=== PATIENT | female | born 1940 | race Caucasian/White ===

== ENCOUNTER 2018-03-16 17:31 | Observation (INO) | payer OTHER ==
[~2018-03-16] VITALS: Ht 157.5 cm; Wt 53.4 kg
[~2018-03-16 17:31] MED LIST: ACIDTAB4 PO; ASPI81 PO; BIOT1TAB2 PO; CITRTAB16 PO; CITRTAB8 PO; FLUT1INH; FOLI1 PO; HYDR200T42 PO; LEVO50TA4 PO; METH2.5 PO; MIRA33502 PO; OMPR20CCR PO; SPIRCAP INH
[2018-03-16 17:34] VITALS: BP 193/89; PULSE 94; RESP 28; TEMP 97.8; O2SAT 93
[2018-03-16] MEDS ORDERED: ASPI81CH6 CHEW (17:57)
[2018-03-16] MEDS ORDERED: METH2.5T PO (17:57)
[2018-03-16] MEDS ORDERED: ATOR20TA15 PO (17:57)
[2018-03-16] MEDS ORDERED: TIOT1AER2 INH (17:57)
[2018-03-16] MEDS ORDERED: LEVO50TA4 PO (17:57)
[2018-03-16] MEDS ORDERED: FLUT1INH INH (17:57)
[2018-03-16] MEDS ORDERED: ZANT150T2 PO (17:57)
[2018-03-16] MEDS ORDERED: ESCI10TA PO (17:57)
[2018-03-16] MEDS ORDERED: FOLI800T PO (17:57)
[2018-03-16 17:58] VITALS: BP 159/86; PULSE 84; RESP 16; TEMP 97.8; O2SAT 96
[2018-03-16] MEDS ORDERED: KETOROLAC TROMETHAMINE 30 MG/ML (IVP) VIAL IV PUSH ONE (18:00)
[2018-03-16] MEDS ORDERED: SODIUM CHLOR 0.9% 1000 ML INJ 1,000 ML IV ONE (18:00)
[2018-03-16] MEDS ORDERED: CYCLOBENZAPRINE HCL 10 MG TAB PO ONE (18:00)
[2018-03-16] MEDS ORDERED: ONDANSETRON ODT 4 MG TAB PO ONE (18:15)
--- NOTE | 2018-03-16 18:15 | PD ---
HPI Chief Complaint: GI Complaint Time Seen by Provider: 17:48 Travel History International Travel<30 days: No Contact w/Intl Traveler<30days: No Traveled to known affect area: No History of Present Illness HPI Patient is a 77 year old female who comes in due to back pain, constipation, and lack of appetite. She says that a week ago she was lifting a heavy box while gardening and she developed back pain. She says that since then she has been unable to eat. She says she has no appetite. She says she tried to eat today and she vomited acid. She says that she has a lot of pain in her lower back. She says that Aleve helped when she took it last night. She also reports being unable to have a bowel movement. She says that she took some Milk of Magnesia and passed a lot of water, but did not feel like she made much stool. She went to see her doctor yesterday who ordered Xrays of her back, which she had done, but does not have the results back. She is worried because she has not gotten any results. She also says she has last about 15 pounds recently and was told she was dehydrated. She denies chest pain, cough, fever. She denies abdominal pain. Severity is mild to moderate. PFSH Past Medical History Arthritis: Yes (RHEUMATOID) Asthma: Yes Autoimmune Disease: No Blood Disorders: Yes (THALACEMIA) Anxiety: No Depression: Yes Heart Rhythm Problems: No Cancer: No Cardiac Catheterization: Yes (2 STENTS) Cardiovascular Problems: No High Cholesterol: Yes Chemotherapy: No Chest Pain: No Congestive Heart Failure: No COPD: Yes Cerebrovascular Accident: No Coronary Artery Disease: Yes Diabetes: No Diminished Hearing: No Endocrine: No Gastrointestinal Disorders: Yes GERD: Yes Glaucoma: No Genitourinary: No Headaches: No Hepatitis: No Hiatal Hernia: Yes Hypertension: No Immune Disorder: No Kidney Stones: No Musculoskeletal: No Neurologic: No Psychiatric: No Reproductive: No Respiratory: Yes (COPD) Immunizations Current: Yes Myocardial Infarction: No Radiation Therapy: No Renal Failure: No Seizures: No Sickle Cell Disease: No Sleep Apnea: No 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) Ulcer: No Influenza Vaccination: Yes ?: Not Past Surgical History Abdominal Surgery: No AICD: No Cardiac Surgery: Yes (HEART STENT PLACED) Ear Surgery: No Endocrine Surgery: No Eye Surgery: No Genitourinary Surgery: No Gynecologic Surgery: No Oral Surgery: No Pacemaker: No Thoracic Surgery: No Other Surgery: Yes Social History Alcohol Use: Yes (SOCIAL) Tobacco Use: No (QUIT 1991) Substance Use: No Allergies-Medications (Allergen,Severity, Reaction): Coded Allergies: No Known Allergies (Verified Adverse Reaction, Unknown, 03/16/18) Reported Meds & Prescriptions Reported Meds & Active Scripts Active Reported Atorvastatin (Atorvastatin Calcium) 20 Mg Tab 20 Mg PO HS Escitalopram (Escitalopram Oxalate) 10 Mg Tab 10 Mg PO DAILY Zantac (Ranitidine HCl) 150 Mg Tab 150 Mg PO DAILY Spiriva Respimat Inh (Tiotropium Inh) 1.25 Mcg/Act Aero 2 Puff INH DAILY 1.25 mcg = 1 inhalation Methotrexate 2.5 Mg Tab 2.5 Mg PO Q7D Levothyroxine (Levothyroxine Sodium) 50 Mcg Tab 50 Mcg PO DAILY Folic Acid 0.8 Mg Tab 800 Mcg PO DAILY Breo Ellipta Inh (Fluticasone/Vilanterol) 100-25 Mcg/Act Inh 1 Puff INH DAILY Use daily at the same time. Aspirin Low Dose (Aspirin) 81 Mg Chew 81 Mg CHEW DAILY Review of Systems Except as stated in HPI: all other systems reviewed are Neg General / Constitutional: No: Fever, Chills HENT: No: Headaches, Lightheadedness Cardiovascular: No: Chest Pain or Discomfort Respiratory: No: Shortness of Breath Gastrointestinal: Positive: Nausea, Constipation Genitourinary: No: Dysuria Musculoskeletal: Positive: Pain Skin: No Rash, No Change in Pigmentation Physical Exam Narrative GENERAL: Awake and alert, in no acute distress. SKIN: Focused skin assessment warm/dry. No wounds or signs of infection. HEAD: Atraumatic. Normocephalic. EYES: Pupils equal and round. No scleral icterus. No injection or drainage. ENT: No nasal bleeding or discharge. Mucous membranes pink and moist. NECK: Trachea midline. No JVD. CARDIOVASCULAR: Regular rate and rhythm. No murmur appreciated. RESPIRATORY: No accessory muscle use. Clear to auscultation. Breath sounds equal bilaterally. GASTROINTESTINAL: Abdomen soft, non-tender, nondistended. MUSCULOSKELETAL: No obvious deformities. No clubbing. No cyanosis. No edema. Tender to palpation of bilateral sacroiliac areas. No spinal tenderness. NEUROLOGICAL: Awake and alert. No obvious cranial nerve deficits. Motor grossly within normal limits. Normal speech. PSYCHIATRIC: Appropriate mood and affect; insight and judgment normal. Data Data Last Documented VS Vital Signs Date Time Temp Pulse Resp B/P (MAP) Pulse Ox O2 Delivery O2 Flow Rate FiO2 03/16/18 17:58 97.8 84 16 159/86 (110) 96 Room Air Orders Orders Iv Access Insert/Monitor (03/16/18 17:59) Complete Blood Count With Diff (03/16/18 17:59) Comprehensive Metabolic Panel (03/16/18 17:59) Urinalysis - C+S If Indicated (03/16/18 17:59) Chest, Single Ap (03/16/18 ) Ct Abd/Pel W Iv Contrast(Rout) (03/16/18 ) Ct Lumb Spine W/O Contrast (03/16/18 ) Sodium Chlor 0.9% 1000 Ml Inj (Ns 1000 M (03/16/18 18:00) Ketorolac Inj (Toradol Inj) (03/16/18 18:00) Cyclobenzaprine (Flexeril) (03/16/18 18:00) Ondansetron Odt (Zofran Odt) (03/16/18 18:15) MDM Medical Decision Making Medical Screen Exam Complete: Yes Emergency Medical Condition: Yes Medical Record Reviewed: Yes Differential Diagnosis dehydration vs UTI vs arthritis vs sciatica Narrative Course Patient is a 77 year old female who comes in with multiple complaints. Exam shows tenderness to palpation of the sacroiliac areas. IV established, labs sent. CT abd/pelvis and lumbar spine ordered. CXR ordered. Given IVF, zofran, Toradol, Flexeril. Signed out to oncoming provider to follow up testing and disposition the patient. Diagnosis Primary Impression: Back pain Qualified Codes: M54.5 - Low back pain Additional Impression: Dehydration Rand Regan MD March 16, 2018 18:15
--- NOTE | 2018-03-16 18:21 | RADRPT ---
EXAM DATE/TIME: 03/16/2018 18:07 [facility] COMPARISON: CHEST SINGLE AP, April 15, 2015, 17:53. INDICATIONS : Short of breath, back pain, nausea MEDICAL HISTORY : Chronic obstructive pulmonary disease. SURGICAL HISTORY : None. ENCOUNTER: Initial ACUITY: 4 - 6 days PAIN SCORE: 0/10 LOCATION: Bilateral chest FINDINGS: A single view of the chest demonstrates the lungs to be hyperaerated without evidence of mass, infilt rate or effusion. The cardiomediastinal contours are unremarkable. Osseous structures are intact. CONCLUSION: No acute disease. Toño Ro MD on March 16, 2018 at 18:19 Board Certified Radiologist. This report was verified electronically.
[2018-03-16 18:38] LABS: CHLORIDE 97 MEQ/L (98-107); SODIUM (NA) 133 MEQ/L (136-145)
[2018-03-16 18:40] LABS: AUTOMATED NEUTROPHIL # 4.9 TH/MM3 (1.8-7.7); BASOPHIL % 0.6 % (0.0-2.0); EOSINOPHIL # 0.5 TH/MM3 (0-0.4); HEMATOCRIT 35.4 % (35.0-46.0); HEMOGLOBIN 10.8 GM/DL (11.6-15.3); LYMPH % 14.1 % (9.0-44.0); MEAN CELL VOLUME 69.3 FL (80.0-100.0); MEAN CORPUSCULAR HEMOGLOBIN 21.2 PG (27.0-34.0); MEAN CORPUSCULAR HGB CONC 30.5 % (32.0-36.0); MEAN PLATELET VOLUME 7.8 FL (7.0-11.0); MONOCYTE # 0.9 TH/MM3 (0-0.9); NEUT % 66.3 % (16.0-70.0); PLATELET COUNT 270 TH/MM3 (150-450); RED CELL DISTRIBUTION WIDTH 14.7 % (11.6-17.2); WHITE BLOOD COUNT 7.4 TH/MM3 (4.0-11.0)
[2018-03-16 18:41] LABS: ALBUMIN 3.5 GM/DL (3.4-5.0); BICARBONATE 29.6 MEQ/L (21.0-32.0); BLOOD UREA NITROGEN 6 MG/DL (7-18); CALCIUM 9.1 MG/DL (8.5-10.1); GLUCOSE,RANDOM 112 MG/DL (74-106)
[2018-03-16 18:41] LABS: BLOOD, URINE TRACE (NEG); GLUCOSE,URINE NEG (NEG); KETONE, URINE TRACE mg/dL (NEG); NITRITE,URINE NEG (NEG); URINE COLOR YELLOW (YELLW/STRAW); URINE LEUKOCYTE ESTERASE NEG (NEG)
[2018-03-16 18:44] LABS: ALT (GPT) 15 U/L (10-53); AST (GOT) 12 U/L (15-37); CREATININE 0.54 MG/DL (0.50-1.00); GLOMERULAR FILTRATION RATE 109 ML/MIN (>89)
[2018-03-16 18:46] LABS: BILIRUBIN, URINE NEG (NEG)
[2018-03-16 18:46] LABS: TOTAL BILIRUBIN ADULT 0.6 MG/DL (0.2-1.0); TOTAL PROTEIN 6.7 GM/DL (6.4-8.2)
[2018-03-16 18:47] LABS: ALKALINE PHOSPHATASE 88 U/L (45-117)
[2018-03-16 18:57] LABS: MUCUS URINE MOD /lpf (OCC); RBC, URINE 0-3 /hpf (0-3); SQUAMOUS EPITHELIAL CELL URINE 0-5 /hpf (0-5); WBC, URINE 0-2 /hpf (0-5)
[2018-03-16] MEDS ORDERED: IOHEXOL 350 MG/ML 10 ML VIAL (for RAD DIAG) IVCONTRAST ONE (19:00)
--- NOTE | 2018-03-16 19:05 | PD ---
Physical Exam Date Seen by Provider: March 16, 2018 Time Seen by Provider: 19:03 Narrative Accepted in transfer of care from Dr. Regan @ 8:15 PM GENERAL: Well-developed well nourished thin female in no acute distress no respiratory distress resting supine SKIN: Warm and dry. HEAD: Normocephalic. EYES: No scleral icterus. No injection or drainage. NECK: Supple, trachea midline. No JVD or lymphadenopathy. CARDIOVASCULAR: Regular rate and rhythm without murmurs, gallops, or rubs. RESPIRATORY: Breath sounds equal bilaterally. No accessory muscle use. GASTROINTESTINAL: Abdomen soft, non-tender, nondistended. Rectal exam: Normal sphincter tone scant brown stool on exam glove Hemoccult negative MUSCULOSKELETAL: No cyanosis, or edema. Bilateral radial and dorsalis pedis pulses 2+ to palpation; DTRs 2+ bilateral upper extremities bilateral knees and ankles and equal without clonus. BACK: Nontender without obvious deformity except tenderness over the SI joints bilaterally right greater than left. Neg (B)SLR. No CVA tenderness. Data Data Last Documented VS Vital Signs Date Time Temp Pulse Resp B/P (MAP) Pulse Ox O2 Delivery O2 Flow Rate FiO2 03/16/18 19:24 85 16 165/75 (105) 95 Room Air 03/16/18 17:58 97.8 Orders Orders Iv Access Insert/Monitor (03/16/18 17:59) Complete Blood Count With Diff (03/16/18 17:59) Comprehensive Metabolic Panel (03/16/18 17:59) Urinalysis - C+S If Indicated (03/16/18 17:59) Chest, Single Ap (03/16/18 ) Ct Abd/Pel W Iv Contrast(Rout) (03/16/18 ) Ct Lumb Spine W/O Contrast (03/16/18 ) Sodium Chlor 0.9% 1000 Ml Inj (Ns 1000 M (03/16/18 18:00) Ketorolac Inj (Toradol Inj) (03/16/18 18:00) Cyclobenzaprine (Flexeril) (03/16/18 18:00) Ondansetron Odt (Zofran Odt) (03/16/18 18:15) Iohexol 350 Inj (Omnipaque 350 Inj) (03/16/18 19:00) Admit Order (Ed Use Only) (03/16/18 ) Roll Up Machine Operator / Telemetry [id number].[id number] (03/16/18 20:21) Activity Bed Rest (03/16/18 20:21) Notify Dr: Other (03/16/18 20:21) Dexamethasone Inj (Decadron Inj) (03/16/18 20:30) Morphine Inj (Morphine Inj) (03/16/18 20:30) Labs Laboratory Tests Test 03/16/18 18:20 03/16/18 18:30 White Blood Count 7.4 TH/MM3 Red Blood Count 5.10 MIL/MM3 Hemoglobin 10.8 GM/DL Hematocrit 35.4 % Mean Corpuscular Volume 69.3 FL Mean Corpuscular Hemoglobin 21.2 PG Mean Corpuscular Hemoglobin Concent 30.5 % Red Cell Distribution Width 14.7 % Platelet Count 270 TH/MM3 Mean Platelet Volume 7.8 FL Neutrophils (%) (Auto) 66.3 % Lymphocytes (%) (Auto) 14.1 % Monocytes (%) (Auto) 12.0 % Eosinophils (%) (Auto) 7.0 % Basophils (%) (Auto) 0.6 % Neutrophils # (Auto) 4.9 TH/MM3 Lymphocytes # (Auto) 1.0 TH/MM3 Monocytes # (Auto) 0.9 TH/MM3 Eosinophils # (Auto) 0.5 TH/MM3 Basophils # (Auto) 0.0 TH/MM3 CBC Comment AUTO DIFF Differential Comment AUTO DIFF CONFIRMED Ovalocytes 1+ Blood Urea Nitrogen 6 MG/DL Creatinine 0.54 MG/DL Random Glucose 112 MG/DL Total Protein 6.7 GM/DL Albumin 3.5 GM/DL Calcium Level 9.1 MG/DL Alkaline Phosphatase 88 U/L Aspartate Amino Transf (AST/SGOT) 12 U/L Alanine Aminotransferase (ALT/SGPT) 15 U/L Total Bilirubin 0.6 MG/DL Sodium Level 133 MEQ/L Potassium Level 3.6 MEQ/L Chloride Level 97 MEQ/L Carbon Dioxide Level 29.6 MEQ/L Anion Gap 6 MEQ/L Estimat Glomerular Filtration Rate 109 ML/MIN Urine Color YELLOW Urine Turbidity CLEAR Urine pH 6.0 Urine Specific [place] 1.025 Urine Protein NEG mg/dL Urine Glucose (UA) NEG mg/dL Urine Ketones TRACE mg/dL Urine Occult Blood TRACE Urine Nitrite NEG Urine Bilirubin NEG Urine Urobilinogen 1.0 MG/DL Urine Leukocyte Esterase NEG Urine RBC 0-3 /hpf Urine WBC 0-2 /hpf Urine Squamous Epithelial Cells 0-5 /hpf Urine Mucus MOD /lpf Microscopic Urinalysis Comment CULT NOT INDICATED MDM Medical Record Reviewed: Yes Supervised Visit with RUPESH: No Interpretation(s) UA: ketones Last Impressions Lumbar Spine CT 03/16/18 0000 Signed Impressions: Service Date/Time: Friday, March 16, 2018 18:57 - CONCLUSION: 1. Multilevel disc bulges including mild canal stenosis at L3-4 and L4-5 levels. 2. Kyphoplasty cement within L1 vertebral body with mild/moderate loss of height. 3. Mild loss of height along the superior and plates of T11 and T12, likely chronic. Toño Ro MD Chest X-Ray 03/16/18 0000 Signed Impressions: Service Date/Time: Friday, March 16, 2018 18:07 - CONCLUSION: No acute disease. Toño Ro MD Abdomen/Pelvis CT 03/16/18 0000 Signed Impressions: Service Date/Time: Friday, March 16, 2018 18:57 - CONCLUSION: 1. Diverticulosis without diverticulitis. 2. Cholelithiasis. 3. Tiny pericardial effusion. Toño Ro MD CBC & BMP Diagram 03/16/18 18:20 Total Protein 6.7, Albumin 3.5, Calcium Level 9.1, Alkaline Phosphatase 88, Aspartate Amino Transf (AST/SGOT) 12 L, Alanine Aminotransferase (ALT/SGPT) 15, Total Bilirubin 0.6 Vital Signs Date Time Temp Pulse Resp B/P (MAP) Pulse Ox O2 Delivery O2 Flow Rate FiO2 03/16/18 19:24 85 16 165/75 (105) 95 Room Air 03/16/18 17:58 97.8 84 16 159/86 (110) 96 Room Air 03/16/18 17:34 97.8 94 28 193/89 (123) 93 Differential Diagnosis Accepted in transfer of care from Dr. Regan; please refer to her dictation Narrative Course Accepted in transfer of care from Dr. Regan; follow up CT's and disposition; @ 19:[address] abdomen pelvis per reading radiologist remarkable for tiny pericardial effusion cholelithiasis single stone identified diverticulosis without diverticulitis and CT lumbar spine remarkable for multiple level disc disease and compression fracture status post kyphoplasty L1 bulging disc at multiple levels with mild canal stenosis at L4 3 and L4-5. No acute fracture identified. CT imaging results and lab results shared with patient and 3 visitors at bedside ; patient has had symptoms 1 week with poor oral intake for water intake and poor food intake with reported weight loss; patient reports she otherwise has poor appetite but more sore this week with anorexia; patient denies any abdominal pain; patient today decided to come to the emergency room because she could not get the results of her imaging studies from his office which were performed yesterday and became concerned. 3 woman with her very concerned and reports that she lives by herself and they have noticed that she has deteriorated rapidly this week and they have not been able to stay with her and provide her with beverage or food. Patient reports that her pain has increased since imaging studies were performed as she is being transferred from one stretcher to another she had increased pain. Patient was logrolled and has mild tenderness to palpation along the lower thoracic and lumbar spine no point tenderness no bony step-off patient does have reproducible tenderness to palpation of both SI joints rectal exam was performed by me patient has normal sphincter tone small amount of brown stool in rectal vault and on exam glove that is Hemoccult negative. Patient with increased pain after transfer from stretcher to stretcher and no relief of symptoms after IV Toradol. Patient has had oral Zofran. Patient given morphine sulfate 1 mg IV has received 1 L of normal saline and reports her pain is unresolved. Patient does have history of COPD. Call placed to [facility] medicine service --discussed with Dr Em --OBS Physician Communication Physician Communication discussed with Dr Em --obs Diagnosis Primary Impression: Back pain Qualified Codes: M54.5 - Low back pain Additional Impressions: Dehydration Intractable back pain Pericardial effusion Cholelithiasis Qualified Codes: K80.20 - Calculus of gallbladder without cholecystitis without obstruction Admitting Information Admitting Physician Requests: Caty Vera MD March 16, 2018 19:05
[2018-03-16 19:16] LABS: OVALOCYTES 1+ (NORMAL)
--- NOTE | 2018-03-16 19:18 | RADRPT ---
EXAM DATE/TIME: 03/16/2018 18:57 [facility] COMPARISON: No previous studies available for comparison. INDICATIONS : Nausea, vomiting and lower back pain for one week. IV CONTRAST: 70 cc Omnipaque 350 (iohexol) IV ORAL CONTRAST: No oral contrast ingested. RADIATION DOSE: 5.26 CTDIvol (mGy) ; Combined studies MEDICAL HISTORY : Chronic obstructive pulmonary disease. Rheumatoid arthritis. Hernia, hiatal. SURGICAL HISTORY : Kyphoplasty. stent placement ENCOUNTER: Initial ACUITY: 1 week PAIN SCALE: 7/10 LOCATION: Bilateral lower back TECHNIQUE: Volumetric scanning of the abdomen and pelvis was performed. Using automated exposure control and ad justment of the mA and/or kV according to patient size, radiation dose was kept as low as reasonably achievable to obtain optimal diagnostic quality images. DICOM format image data is available electro nically for review and comparison. FINDINGS: LOWER LUNGS: The visualized lower lungs are clear. Tiny pericardial effusion. LIVER: Homogeneous density without lesion. There is no dilation of the biliary tree. Small calcified galls tone. SPLEEN: Normal size without lesion. PANCREAS: Within normal limits. KIDNEYS: Normal in size and shape. There is no mass, stone or hydronephrosis. ADRENAL GLANDS: Within normal limits. VASCULAR: There is no aortic aneurysm. Atherosclerotic changes of the abdominal aorta. BOWEL/MESENTERY: Diverticulosis the colon. There is no free intraperitoneal air or fluid. ABDOMINAL WALL: Within normal limits. RETROPERITONEUM: There is no lymphadenopathy. BLADDER: No wall thickening or mass. REPRODUCTIVE: Within normal limits. INGUINAL: There is no lymphadenopathy or hernia. MUSCULOSKELETAL: Degenerative changes lumbar spine. Kyphoplasty cement within L1. CONCLUSION: 1. Diverticulosis without diverticulitis. 2. Cholelithiasis. 3. Tiny pericardial effusion. Toño Ro MD on March 16, 2018 at 19:13 Board Certified Radiologist. This report was verified electronically.
[2018-03-16 19:24] VITALS: BP 165/75; PULSE 85; RESP 16; O2SAT 95
--- NOTE | 2018-03-16 19:30 | RADRPT ---
EXAM DATE/TIME: 03/16/2018 18:57 [facility] COMPARISON: No previous studies available for comparison. INDICATIONS : Nausea, vomiting and lower back pain for one week. RADIATION DOSE: ; Reconstructed from previous dataset, no dose MEDICAL HISTORY : Chronic obstructive pulmonary disease. Rheumatoid arthritis. Hernia, hiatal. SURGICAL HISTORY : Kyphoplasty. ENCOUNTER: Initial ACUITY: 1 week PAIN SCALE: 7/10 LOCATION: Bilateral lower back TECHNIQUE: Volumetric scanning of the lumbar spine was performed. Multiplanar reconstructions in the sagittal, coronal and oblique axial planes were performed. Using automated exposure control and adjustment of the mA and/or kV according to patient size, radiation dose was kept as low as reasonably achievable t o obtain optimal diagnostic quality images. DICOM format image data is available electronically for review and comparison. FINDINGS: VERTEBRAE: Kyphoplasty cement seen within L1 with mild to moderate loss of height. Mild loss of height of T11 an d T12 along the superior and plates. Remaining lumbar vertebral bodies are normal.. ALIGNMENT: No evidence of subluxation. T12-L1: The thecal sac has a normal diameter. No evidence of disc bulge or protrusion. The neural foramina are patent bilaterally. L1-L2: The thecal sac has a normal diameter. No evidence of disc bulge or protrusion. The neural foramina are patent bilaterally. L2-L3: Mild broad-based bulge abuts ventral thecal sac without canal stenosis. The neural foramina are champagne nt bilaterally. L3-L4: Mild broad-based bulge abuts ventral thecal sac with mild canal stenosis. Bilateral mild neural cale inal narrowing. L4-L5: Mild broad-based bulge abuts ventral thecal sac with mild canal stenosis. Bilateral mild neural cale inal narrowing. L5-S1: The thecal sac has a normal diameter. No evidence of disc bulge or protrusion. The neural foramina are patent bilaterally. CONCLUSION: 1. Multilevel disc bulges including mild canal stenosis at L3-4 and L4-5 levels. 2. Kyphoplasty cement within L1 vertebral body with mild/moderate loss of height. 3. Mild loss of height along the superior and plates of T11 and T12, likely chronic. Toño Ro MD on March 16, 2018 at 19:24 Board Certified Radiologist. This report was verified electronically.
[2018-03-16] MEDS ORDERED: MORPHINE SULFATE 4 MG/ML INJ IV PUSH ONE (20:30)
[2018-03-16] MEDS ORDERED: DEXAMETHASONE SOD PHOS 4 MG/ML VIAL IV PUSH ONE (20:30)
[2018-03-16] MEDS ORDERED: ACETAMINOPHEN 325 MG TAB PO PRN (20:45)
[2018-03-16] MEDS ORDERED: METOCLOPRAMIDE HCL 10 MG/2 ML VIAL IV PUSH PRN (20:45)
[2018-03-16] MEDS ORDERED: SENNOSIDES 8.6 MG TAB PO PRN (20:45)
[2018-03-16] MEDS ORDERED: ACETAMINOPHEN/HYDROcodone 325 MG/5 MG TAB PO PRN (20:45)
[2018-03-16] MEDS ORDERED: BISACODYL 10 MG SUPP RECTAL PRN (20:45)
[2018-03-16] MEDS ORDERED: LACTULOSE SYRUP 20 GM/30 ML CUP PO PRN (20:45)
[2018-03-16] MEDS ORDERED: MAGNESIUM HYDROXIDE SUSP 30 ML CUP PO PRN (20:45)
[2018-03-16] MEDS ORDERED: SODIUM CHLORIDE 0.9% FLUSH 10 ML FLUSH IV FLUSH PRN (20:45)
[2018-03-16 20:53] VITALS: BP 165/74; TEMP 98.7
[2018-03-16] MEDS: SODIUM CHLORIDE 0.9% FLUSH 10 ML FLUSH IV FLUSH SCH (20:57)
[2018-03-16] MEDS ORDERED: ATORVASTATIN 20 MG TAB PO SCH (21:00)
[2018-03-16] MEDS ORDERED: MORPHINE SULFATE 4 MG/ML INJ IV PUSH PRN (21:00)
[2018-03-16 21:15] VITALS: BP 164/84; PULSE 87; RESP 20; TEMP 95.9; O2SAT 96
[2018-03-16] MEDS: CYCLOBENZAPRINE HCL 10 MG TAB PO PRN (21:25)
[2018-03-16] MEDS: DOCUSATE SODIUM 50 MG/SENNA 8.6 MG TAB PO SCH (21:25)
[2018-03-17] VITALS (7 sets, daily range): BP systolic 112–154; BP diastolic 54–80; PULSE 72–97; RESP 18–20; TEMP 96–97.6; O2SAT 93–97
[2018-03-17] MEDS ORDERED: LEVOTHYROXINE SODIUM 50 MCG TAB PO SCH (06:00)
[2018-03-17 07:17] LABS: HEMATOCRIT 35.7 % (35.0-46.0); HEMOGLOBIN 11.1 GM/DL (11.6-15.3); MEAN CELL VOLUME 68.8 FL (80.0-100.0); MEAN CORPUSCULAR HEMOGLOBIN 21.5 PG (27.0-34.0); MEAN CORPUSCULAR HGB CONC 31.2 % (32.0-36.0); MEAN PLATELET VOLUME 7.5 FL (7.0-11.0); PLATELET COUNT 284 TH/MM3 (150-450); RED BLOOD COUNT 5.18 MIL/MM3 (4.00-5.30); RED CELL DISTRIBUTION WIDTH 14.8 % (11.6-17.2); WHITE BLOOD COUNT 4.1 TH/MM3 (4.0-11.0)
[2018-03-17 07:42] LABS: ALBUMIN 3.2 GM/DL (3.4-5.0); ALKALINE PHOSPHATASE 81 U/L (45-117); ALT (GPT) 14 U/L (10-53); AST (GOT) 12 U/L (15-37); BICARBONATE 31.5 MEQ/L (21.0-32.0); BLOOD UREA NITROGEN 7 MG/DL (7-18); CALCIUM 8.9 MG/DL (8.5-10.1); CHLORIDE 102 MEQ/L (98-107); CREATININE 0.52 MG/DL (0.50-1.00); GLOMERULAR FILTRATION RATE 114 ML/MIN (>89); GLUCOSE,RANDOM 138 MG/DL (74-106); SODIUM (NA) 137 MEQ/L (136-145); TOTAL BILIRUBIN ADULT 0.5 MG/DL (0.2-1.0); TOTAL PROTEIN 6.3 GM/DL (6.4-8.2)
[2018-03-17 07:52] LABS: LYMPHOCYTES 16 % (9-44); MONOCYTES 5 % (0-8); NEUTROPHIL # MANUAL DIFF 3.2 TH/MM3 (1.8-7.7); POLYS (SEG NEUTROPHILS) 79 % (16-70)
--- NOTE | 2018-03-17 08:59 | HHI.HP ---
[facility] Chava Doshi MD Admission Diagnosis Intractable lumbar pain/lumbar DDD; small pericardial effusion Diagnoses: (1) Intractable back pain Chief Complaint: Back pain Travel History International Travel<30 Days: No Contact w/Intl Traveler <30 Da: No Traveled to Known Affected Are: No History of Present Illness This is a pleasant 77-year-old female patient with a known medical history of rheumatoid arthritis, CAD with cardiac stent placement, hyperlipidemia, COPD who presented to the ED with complaints of back pain, constipation and diminished appetite. Patient states that last week she was lifting a heavy box in her garden and immediately developed lower lumbar back pain. Patient states that the back pain continued over the course of the week and progressively got worse leading to her presentation to the ED. Patient does admit to poor appetite and constipation. She does admit to taking milk of mag which initially helped her constipation and now has not had a bowel movement for over 5 days now. She is passing gas. Patient's pain in her back as sharp in nature , worsens with activity and movement and is associated with nausea and intermittent vomiting. Patient denies any paresthesia, or incontinence of urine or stool. Supposedly patient went to her primary care doctor this week and x-rays were ordered but patient is unaware of the results. It should be noted that patient feels dehydrated upon presentation and has reported a 15 pound weight loss over the course of the last month. Upon presentation patient' s blood pressure was severely elevated in the 190s systolic. This is not resolved. Pain is more controlled at this time. Lumbar CT was done in ED and reviewed showing disc bulging and mild canal stenosis. Patient has had a previous kyphoplasty. No acute fracture or compression. Review of Systems Constitutional: COMPLAINS OF: Fatigue, Change in appetite, DENIES: Fever, Chills Eyes: DENIES: Diplopia Respiratory: COMPLAINS OF: Shortness of breath, DENIES: Cough, Sputum production Cardiovascular: DENIES: Chest pain, Palpitations Gastrointestinal: COMPLAINS OF: Constipation, Nausea, DENIES: Abdominal pain, Black stools, Bloody stools, Diarrhea, Vomiting Musculoskeletal: COMPLAINS OF: Back pain Hematologic/lymphatic: DENIES: Bruising Neurologic: DENIES: Abnormal gait Psychiatric: COMPLAINS OF: Anxiety Except as stated in HPI: all other systems reviewed are Neg Past Family Social History Past Medical History History of thalassemia Rheumatoid arthritis Asthma History of COPD Depression History of CAD with cardiac stent placement Hyperlipidemia GERD Thyroid nodules Past Surgical History History of kyphoplasty in 2016 Cardiac stent placement x 2 Reported Medications Active Reported Atorvastatin (Atorvastatin Calcium) 20 Mg Tab 20 Mg PO HS Escitalopram (Escitalopram Oxalate) 10 Mg Tab 10 Mg PO DAILY Zantac (Ranitidine HCl) 150 Mg Tab 150 Mg PO DAILY Spiriva Respimat Inh (Tiotropium Inh) 1.25 Mcg/Act Aero 2 Puff INH DAILY 1.25 mcg = 1 inhalation Methotrexate 2.5 Mg Tab 2.5 Mg PO Q7D Levothyroxine (Levothyroxine Sodium) 50 Mcg Tab 50 Mcg PO DAILY Folic Acid 0.8 Mg Tab 800 Mcg PO DAILY Breo Ellipta Inh (Fluticasone/Vilanterol) 100-25 Mcg/Act Inh 1 Puff INH DAILY Use daily at the same time. Aspirin Low Dose (Aspirin) 81 Mg Chew 81 Mg CHEW DAILY Allergies: Coded Allergies: No Known Allergies (Verified Allergy, Unknown, 03/16/18) Active Ordered Medications Current Medications Medications (Trade) Dose Ordered Sig/Honey Route Start Time Stop Time Status Last Admin (Deltasone) 50 mg DAILY PO 03/17/18 09:00 03/17/18 09:03 (Flexeril) 5 mg Q8H PRN PO 03/16/18 20:45 03/17/18 09:04 (NS Flush) 2 ml UNSCH PRN IV FLUSH 03/16/18 20:45 (NS Flush) 2 ml BID IV FLUSH 03/16/18 21:00 03/17/18 09:05 (Reglan Inj) 5 mg Q6H PRN IV PUSH 03/16/18 20:45 (Tylenol) 650 mg Q6H PRN PO 03/16/18 20:45 ([place] 5-325 Mg) 1 tab Q4H PRN PO 03/16/18 20:45 (Morphine Inj) 2 mg Q3H PRN IV PUSH 03/16/18 21:00 (Lara-Colace) 1 tab BID PO 03/16/18 21:00 03/17/18 09:03 (Milk Of Magnesia Liq) 30 ml Q12H PRN PO 03/16/18 20:45 (Senokot) 17.2 mg Q12H PRN PO 03/16/18 20:45 03/17/18 09:22 (Dulcolax Supp) 10 mg DAILY PRN RECTAL 03/16/18 20:45 (Lactulose Liq) 30 ml DAILY PRN PO 03/16/18 20:45 (Aspirin Chew) 81 mg DAILY CHEW 03/17/18 09:00 03/17/18 09:04 (Lipitor) 20 mg HS PO 03/16/18 21:00 03/16/18 21:25 (Lexapro) 10 mg DAILY PO 03/17/18 09:00 03/17/18 09:03 (Breo Ellipta 100-25 Inh) 1 puff DAILY INH 03/17/18 09:00 03/17/18 09:04 (Synthroid) 50 mcg DAILY@0600 PO 03/17/18 06:00 03/17/18 06:15 (Pepcid) 20 mg BID PO 03/17/18 09:00 03/17/18 09:03 (Spiriva Inh) 18 mcg DAILY INH 03/17/18 09:00 03/17/18 09:04 Family History Patient family history reviewed, noncontributory. Social History Patient denies current tobacco abuse, states she quit in 1991. Does admit to social alcohol use. Denies any illicit drug use. Physical Exam Vital Signs Vital Signs Date Time Temp Pulse Resp B/P (MAP) Pulse Ox O2 Delivery O2 Flow Rate FiO2 03/17/18 07:01 79 03/17/18 04:09 97.3 72 20 130/70 (90) 95 03/17/18 00:22 96.0 80 20 154/80 (104) 97 03/16/18 21:15 95.9 87 20 164/84 (110) 96 03/16/18 20:53 98.7 84 16 165/74 (104) 95 Nasal Cannula 2.00 03/16/18 19:24 85 16 165/75 (105) 95 Room Air 03/16/18 17:58 97.8 84 16 159/86 (110) 96 Room Air 03/16/18 17:34 97.8 94 28 193/89 (123) 93 Physical Exam GENERAL: Well-developed, elderly female patient in NAD. SKIN: Warm and dry. No rash. HEAD: Normocephalic. Atraumatic. EYES: Pupils equal and round. No scleral icterus. No injection or drainage. ENT: No nasal bleeding or discharge. Mucous membranes pink and moist. NECK: Supple. Trachea midline. CARDIOVASCULAR: Regular rate and rhythm. S1, S2 noted. No murmur appreciated. RESPIRATORY: Diminished breath sounds throughout posterior lobes. Breath sounds equal bilaterally. GASTROINTESTINAL: Abdomen soft, non-tender, nondistended. Normoactive bowel sounds x4. MUSCULOSKELETAL: No obvious deformities. Extremities without clubbing, cyanosis , or edema. Back painful to palpation in the lumbar spine. NEUROLOGICAL: Awake and alert. No obvious cranial nerve deficits. Motor grossly within normal limits. 5/5 muscle strength in bilateral upper and lower extremities. Normal speech. PSYCHIATRIC: Appropriate mood and affect; insight and judgment normal. Oups. Normal speech. Laboratory Laboratory Tests Test 03/16/18 18:20 03/16/18 18:30 03/17/18 06:46 White Blood Count 7.4 4.1 Red Blood Count 5.10 5.18 Hemoglobin 10.8 11.1 Hematocrit 35.4 35.7 Mean Corpuscular Volume 69.3 68.8 Mean Corpuscular Hemoglobin 21.2 21.5 Mean Corpuscular Hemoglobin Concent 30.5 31.2 Red Cell Distribution Width 14.7 14.8 Platelet Count 270 284 Mean Platelet Volume 7.8 7.5 Neutrophils (%) (Auto) 66.3 Lymphocytes (%) (Auto) 14.1 Monocytes (%) (Auto) 12.0 Eosinophils (%) (Auto) 7.0 Basophils (%) (Auto) 0.6 Neutrophils # (Auto) 4.9 Lymphocytes # (Auto) 1.0 Monocytes # (Auto) 0.9 Eosinophils # (Auto) 0.5 Basophils # (Auto) 0.0 CBC Comment AUTO DIFF AUTO DIFF Differential Comment AUTO DIFF CONFIRMED FINAL DIFF MANUAL Ovalocytes 1+ Blood Urea Nitrogen 6 7 Creatinine 0.54 0.52 Random Glucose 112 138 Total Protein 6.7 6.3 Albumin 3.5 3.2 Calcium Level 9.1 8.9 Alkaline Phosphatase 88 81 Aspartate Amino Transf (AST/SGOT) 12 12 Alanine Aminotransferase (ALT/SGPT) 15 14 Total Bilirubin 0.6 0.5 Sodium Level 133 137 Potassium Level 3.6 4.8 Chloride Level 97 102 Carbon Dioxide Level 29.6 31.5 Anion Gap 6 4 Estimat Glomerular Filtration Rate 109 114 Urine Color YELLOW Urine Turbidity CLEAR Urine pH 6.0 Urine Specific [place] 1.025 Urine Protein NEG Urine Glucose (UA) NEG Urine Ketones TRACE Urine Occult Blood TRACE Urine Nitrite NEG Urine Bilirubin NEG Urine Urobilinogen 1.0 Urine Leukocyte Esterase NEG Urine RBC 0-3 Urine WBC 0-2 Urine Squamous Epithelial Cells 0-5 Urine Mucus MOD Microscopic Urinalysis Comment CULT NOT INDICATED Differential Total Cells Counted 100 Neutrophils % (Manual) 79 Lymphocytes % 16 Monocytes % 5 Neutrophils # (Manual) 3.2 Platelet Estimate NORMAL Platelet Morphology Comment NORMAL Result Diagram: 03/17/18 0646 03/17/18 0646 Imaging Last Impressions Lumbar Spine CT 03/16/18 0000 Signed Impressions: Service Date/Time: Friday, March 16, 2018 18:57 - CONCLUSION: 1. Multilevel disc bulges including mild canal stenosis at L3-4 and L4-5 levels. 2. Kyphoplasty cement within L1 vertebral body with mild/moderate loss of height. 3. Mild loss of height along the superior and plates of T11 and T12, likely chronic. Toño Ro MD Chest X-Ray 03/16/18 0000 Signed Impressions: Service Date/Time: Friday, March 16, 2018 18:07 - CONCLUSION: No acute disease. Toño Ro MD Abdomen/Pelvis CT 03/16/18 0000 Signed Impressions: Service Date/Time: Friday, March 16, 2018 18:57 - CONCLUSION: 1. Diverticulosis without diverticulitis. 2. Cholelithiasis. 3. Tiny pericardial effusion. Toño Ro MD Septic Shock Reassessment Septic shock perfusion: reassessment completed Caprini VTE Risk Assessment Caprini VTE Risk Assessment: Mod/High Risk (score >= 2) Caprini Risk Assessment Model Point Value = 1 Point Value = 2 Point Value = 3 Point Value = 5 Age 41-60 Minor surgery BMI > 25 kg/m2 Swollen legs Varicose veins or History of unexplained or recurrent spontaneous Oral contraceptives or hormone replacement Sepsis (< 1 month) Serious lung disease, including pneumonia (< 1 month) Abnormal pulmonary function Acute myocardial infarction Congestive heart failure (< 1 month) History of inflammatory bowel disease Medical patient at bed rest Age 61-74 Arthroscopic surgery Major open surgery (> 45 min) Laparoscopic surgery (> 45 min) Malignancy Confined to bed (> 72 hours) Immobilizing plaster cast Central venous access Age >= 75 History of VTE Family history of VTE Factor V Leiden Prothrombin [id number] Lupus anticoagulant Anticardiolipin antibodies Elevated serum homocysteine Heparin-induced thrombocytopenia Other congenital or acquired thrombophilia Stroke (< 1 month) Elective arthroplasty Hip, pelvis, or leg fracture Acute spinal cord injury (< 1 month) Prophylaxis Regimen Total Risk Factor Score Risk Level Prophylaxis Regimen 0-1 Low Early ambulation 2 Moderate Order ONE of the following: *Sequential Compression Device (SCD) *Heparin 5000 units SQ BID 3-4 Higher Order ONE of the following medications: *Heparin 5000 units SQ TID *Enoxaparin/Lovenox 40 mg SQ daily (WT < 150 kg, CrCl > 30 mL/min) *Enoxaparin/Lovenox 30 mg SQ daily (WT < 150 kg, CrCl > 10-29 mL/min) *Enoxaparin/Lovenox 30 mg SQ BID (WT < 150 kg, CrCl > 30 mL/min) AND/OR *Sequential Compression Device (SCD) 5 or more Highest Order ONE of the following medications: *Heparin 5000 units SQ TID (Preferred with Epidurals) *Enoxaparin/Lovenox 40 mg SQ daily (WT < 150 kg, CrCl > 30 mL/min) *Enoxaparin/Lovenox 30 mg SQ daily (WT < 150 kg, CrCl > 10-29 mL/min) *Enoxaparin/Lovenox 30 mg SQ BID (WT < 150 kg, CrCl > 30 mL/min) AND *Sequential Compression Device (SCD) Assessment and Plan Problem List: (1) Intractable back pain ICD Code: M54.9 - Dorsalgia, unspecified Status: Acute Plan: Lumbar spine CT done in ED, reviewed showing multilevel disc bulges including mild canal stenosis at L3/L4 and L4/L5. Previous kyphoplasty seen. Chronic changes in the height of the superior endplates of T11 and T12. Pain control with p.o. Flexeril as needed for muscle spasm as well as [place] for pain scale and morphine IV per pain scale. Awaiting PT eval at this time. Patient was given Decadron IV any D. Will continue with prednisone 50 mg daily. Supportive care. (2) Constipation ICD Code: K59.00 - Constipation, unspecified Plan: No reports of a bowel movement in 5 days. Patient started on bowel regimen. Senokot given today. Monitor response. Abdominal/pelvis CT reviewed showing diverticulosis without diverticulitis. Cholelithiasis and tiny pericardial effusion. Patient has been doing well on RA with o2 sats 97%. Asymptomatic. Will have patient follow up with PCP. (3) Thyroid disease ICD Code: E07.9 - Disorder of thyroid, unspecified Plan: Continue home thyroid medication. (4) COPD (chronic obstructive pulmonary disease) ICD Code: J44.9 - Chronic obstructive pulmonary disease, unspecified Plan: Chest x ray reviewed showing no acute disease. COPD stable. On 2 LNC weaned to RA. Stable O2 sats. Continue home inhalers. Assessment and Plan Patient reassessed this afternoon, doing much improved. Pain is well controlled on Flexiril. Has not needed any narcotics. PT worked with patient, no HHC recommended although walker would be helpful. Patient has been tolerating PO intake, passing flatus. No BM as of yet although patient has not had much intake. Will write prescription for constipation and have patient follow up with PCP for lumbar pain and constipation. Patient is stable at this time and agreeable to the plan. Rand Mulligan March 17, 2018 08:59
[2018-03-17] MEDS ORDERED: FAMOTIDINE 20 MG TAB PO SCH (09:00)
[2018-03-17] MEDS ORDERED: predniSONE 50 MG TAB PO SCH (09:00)
[2018-03-17] MEDS ORDERED: TIOTROPIUM BROMIDE 18 MCG INH INH SCH (09:00)
[2018-03-17] MEDS ORDERED: ASPIRIN 81 MG CHEW TAB CHEW SCH (09:00)
[2018-03-17] MEDS ORDERED: FLUTICASONE 100 MCG/VILANTEROL 25 MCG INHALER INH SCH (09:00)
[2018-03-17] MEDS ORDERED: ESCITALOPRAM OXALATE 10 MG TAB PO SCH (09:00)
[2018-03-17] MEDS: DOCUSATE SODIUM 50 MG/SENNA 8.6 MG TAB PO SCH (09:03)
[2018-03-17] MEDS: CYCLOBENZAPRINE HCL 10 MG TAB PO PRN (09:04)
[2018-03-17] MEDS: SODIUM CHLORIDE 0.9% FLUSH 10 ML FLUSH IV FLUSH SCH (09:05)
[2018-03-17] MEDS ORDERED: GETGO ROLLING W1 MI1 (15:11)
--- NOTE | 2018-03-17 15:12 | HHI.DCPOC ---
Discharge Care Plan Diagnosis: (1) Intractable back pain (2) COPD (chronic obstructive pulmonary disease) (3) Constipation Goals to Promote Your Health * To prevent worsening of your condition and complications * To maintain your health at the optimal level Directions to Meet Your Goals Take your medications as prescribed Follow your dietary instruction Follow activity as directed Keep your appointments as scheduled Take your immunizations and boosters as scheduled If your symptoms worsen call your PCP, if no PCP go to Urgent Care Center or Emergency Room Smoking is Dangerous to Your Health. Avoid second hand smoke Call the 24-hour hour crisis hotline for domestic abuse at Rand Mulligan March 17, 2018 15:12
[2018-03-17] MEDS ORDERED: CYCL10TA PO (15:15)
[2018-03-17] MEDS ORDERED: PRED50 PO (15:15)
[2018-03-17] MEDS ORDERED: SENN187 PO (15:16)
== END 2018-03-17 16:32 | disposition home or self-care (01) ==
LOC: PHED 17:31 → PHEDA 20:23 → PH3A 20:51
PROVIDERS: ADMIT Hospitalist; ATTEND Hospitalist
DX: M54.5 Low back pain (principal); K59.00 Constipation, unspecified; I31.3 Pericardial effusion (noninflammatory); E86.0 Dehydration; E07.9 Disorder of thyroid, unspecified; J44.9 Chronic obstructive pulmonary disease, unspecified; K80.20 Calculus of gallbladder without cholecystitis without obstruction; K57.90 Diverticulosis of intestine, part unspecified, without perforation or abscess without bleeding; M48.061 Spinal stenosis, lumbar region without neurogenic claudication; I25.10 Atherosclerotic heart disease of native coronary artery without angina pectoris; E78.5 Hyperlipidemia, unspecified; K21.9 Gastro-esophageal reflux disease without esophagitis; M51.36 Other intervertebral disc degeneration, lumbar region; M06.9 Rheumatoid arthritis, unspecified; F32.9 Major depressive disorder, single episode, unspecified; Z87.891 Personal history of nicotine dependence; Z95.5 Presence of coronary angioplasty implant and graft; Z79.899 Other long term (current) drug therapy
CPT/HCPCS: 71045; 72131; 74177; 80053; 81001; 85007; 85025; 85027; 94150; 96361; 96374; 96375; 96376; 97162; 99285; G0378; G8987; G8988; J1100; J1885; J2270; J7030; J7512; Q9967

== ENCOUNTER 2018-05-09 07:20 | Inpatient (IN) ==
[2018-05-09] MEDS ORDERED: MethylPREDNISolone Sod Succinate Inj 125 MG/2 ML Vial IV.PUSH ONE (07:29)
--- NOTE | 2018-05-09 07:44 | ED ---
HPI General Chief Complaint: Fall Stated Complaint: Fall/Evac Time Seen by Provider: 05/09/18 07:28 Source: patient and EMS Mode of arrival: EMS Limitations: no limitations History of Present Illness HPI Narrative: 77-year-old female states that she was feeling dizzy and short of breath this morning. When she was walking she hit her right hip on a dresser and fell down and hit her head. She did not black out. She denies any other concurrent complaints. complaint: fall Onset (ago): minute(s) Fall from: standing Fall witnessed: no Place fall occurred: home Loss of consciousness: none Prolonged down time: no Symptoms prior to fall: dizziness Location of injury - extremities: Right: thigh Severity: mild Quality: sharp Related Data Home Medications Medication Instructions Recorded Confirmed Spiriva with HandiHaler 05/07/18 albuterol sulfate [Ventolin HFA] 2 puff INHALATION Q4-6H PRN 05/07/18 05/09/18 atorvastatin 10 mg PO 05/07/18 baclofen 20 mg PO QID 05/07/18 05/09/18 fluticasone-vilanterol [Breo 1 inh INHALATION DAILY 05/07/18 05/09/18 Ellipta] levothyroxine 50 mcg PO DAILY 05/07/18 05/09/18 meloxicam 15 mg PO DAILY 05/07/18 05/09/18 methotrexate 10 mg/m2 PO QWEEK 05/07/18 05/09/18 Allergies Allergy/AdvReac Type Severity Reaction Status Date / Time No Known Allergies Allergy Verified 05/09/18 08:05 Review of Systems Except as stated in HPI: all other systems reviewed are negative [facility] Medical History Medical History Back arthralgia (Acute) COPD (chronic obstructive pulmonary disease) (Acute) Hypercholesteremia (Acute) Hypothyroidism (Acute) Rheumatoid arthritis (Acute) Thalassemia (Acute) Surgical History Surgical History Hx of heart artery stent (Acute) Family History Family History Other Family history of colon cancer Social History Social History Substance History: No History of Abuse Second Hand Smoke Exposure: No Smoking Status: Former smoker Tobacco Type: Cigarettes How Often Do You Have a Drink Containing Alcohol: Never Recent Travel in [facility] within the Last 8 Weeks: No Recent Out of Country Travel within the Last 8 Weeks: No Exam Narrative Exam Narrative: GENERAL: 77-year-old female in no apparent distress SKIN: Focused skin assessment warm/dry. HEAD: Atraumatic. Normocephalic. EYES: Pupils equal and round. No scleral icterus. No injection or drainage. ENT: No nasal bleeding or discharge. Mucous membranes pink and moist. NECK: Trachea midline. No JVD. No midline cervical pain CARDIOVASCULAR: Regular rate and rhythm. No murmur appreciated. RESPIRATORY: No accessory muscle use. Decreased aeration bilaterally. GASTROINTESTINAL: Abdomen soft, non-tender, nondistended. Hepatic and splenic margins not palpable. MUSCULOSKELETAL: No obvious deformities. No clubbing. No cyanosis. Tender to right hip without deformity, neurovascularly intact, compartment soft NEUROLOGICAL: Awake and alert. No obvious cranial nerve deficits. Motor grossly within normal limits. Normal speech. PSYCHIATRIC: Appropriate mood and affect; insight and judgment normal. Course Reevaluation(s) Reevaluation #1: patient updated about hip fracture and agrees to admit Consultations Consultation #1: dr pace states will take tommorrow after clearance and to keep npo after midnight Consultation #2: dr merrill agrees to admit Initial Documented Vital Signs Temperature 98.4 F 05/09/18 07:37 Pulse Rate 92 H 05/09/18 07:37 Respiratory Rate 15 05/09/18 07:37 Blood Pressure 183/79 H 05/09/18 07:37 Pulse Oximetry 97 05/09/18 07:37 Last Documented Vital Signs Temperature 98.4 F 05/09/18 07:37 Pulse Rate 89 05/09/18 08:48 Respiratory Rate 21 05/09/18 08:48 Blood Pressure 188/93 H 05/09/18 08:48 Pulse Oximetry 96 05/09/18 08:48 Medical Decision Making [facility] Narrative Medical decision making narrative: Will check blood work, trauma imaging, and dose with duonebs and Solu-Medrol and reevaluate Differential Diagnosis Differential Diagnosis: Fracture, bleed, COPD, pneumonia, anemia, renal failure Lab Data Result diagrams: 05/09/18 07:50 05/09/18 07:50 Lab Results 05/09/18 05/09/18 05/09/18 Range/Units 07:00 07:50 07:50 WBC 19.2 H (4.0-11.0) th/mm3 RBC 5.19 (4.00-5.30) mil/mm3 Hgb 10.8 L (11.6-15.3) gm/dL Hct 35.0 (35.0-46.0) % MCV 67.3 L (80.0-100.0) fL MCH 20.9 L (27.0-34.0) pg MCHC 31.0 L (32.0-36.0) % RDW 16.3 (11.6-17.2) % Plt Count 268 (150-450) th/mm3 MPV 7.2 (7.0-11.0) fL Neut % (Auto) 80.5 H (16.0-70.0) % Lymph % (Auto) 11.7 (9.0-44.0) % Collier % (Auto) 7.0 (0.0-8.0) % Eos % (Auto) 0.4 (0.0-4.0) % Baso % (Auto) 0.4 (0.0-2.0) % Neut # (Auto) 15.5 H (1.8-7.7) th/mm3 Lymph # (Auto) 2.3 (1.0-4.8) th/mm3 Collier # (Auto) 1.3 H (0.0-0.9) th/mm3 Eos # (Auto) 0.1 (0.0-0.4) th/mm3 Baso # (Auto) 0.1 (0.0-0.2) th/mm3 WBC Differential . Differential Comment Auto diff final PT 10.7 (9.8-11.6) sec INR 1.1 Ratio APTT 23.3 L (24.3-30.1) sec Sodium (136-145) meq/L Potassium (3.5-5.1) meq/L Chloride (98-107) meq/L Carbon Dioxide (21.0-32.0) meq/L Anion Gap (5-15) meq/L BUN (7-18) mg/dL Creatinine (0.50-1.00) mg/dL Estimated GFR (>89) mL/min Random Glucose (74-106) mg/dL Lactic Acid 1.2 (0.4-2.0) mmol/L Calcium (8.5-10.1) mg/dL Magnesium (1.5-2.5) mg/dL Total Bilirubin (0.2-1.0) mg/dL AST (15-37) U/L ALT (10-53) U/L Alkaline Phosphatase (45-117) U/L Total Creatine Kinase (26-192) U/L Troponin I (0.02-0.05) ng/mL B-Natriuretic Peptide (0-100) pg/mL Total Protein (6.4-8.2) g/dL Albumin (3.4-5.0) g/dL Urine Color (Yellw/Straw) Urine Clarity (Clear) Urine pH (5.0-8.5) Ur Specific Vassar (1.002-1.035) Urine Protein (Neg-Trace) mg/dL Urine Glucose (UA) (Negative) mg/dL Urine Ketones (Negative) mg/dL Urine Occult Blood (Negative) Urine Nitrate (Negative) Urine Bilirubin (Negative) Urine Urobilinogen (Less than 2) mg/dL Ur Leukocyte Esterase (Negative) Urine RBC (0-3) /hpf Urine WBC (0-5) /hpf Urine Mucus (Occasional) /lpf Micro UA Comment Urine Culture Comments Blood Type Blood Type Recheck Antibody Screen 05/09/18 05/09/18 05/09/18 Range/Units 07:50 07:50 07:50 WBC (4.0-11.0) th/mm3 RBC (4.00-5.30) mil/mm3 Hgb (11.6-15.3) gm/dL Hct (35.0-46.0) % MCV (80.0-100.0) fL MCH (27.0-34.0) pg MCHC (32.0-36.0) % RDW (11.6-17.2) % Plt Count (150-450) th/mm3 MPV (7.0-11.0) fL Neut % (Auto) (16.0-70.0) % Lymph % (Auto) (9.0-44.0) % Collier % (Auto) (0.0-8.0) % Eos % (Auto) (0.0-4.0) % Baso % (Auto) (0.0-2.0) % Neut # (Auto) (1.8-7.7) th/mm3 Lymph # (Auto) (1.0-4.8) th/mm3 Collier # (Auto) (0.0-0.9) th/mm3 Eos # (Auto) (0.0-0.4) th/mm3 Baso # (Auto) (0.0-0.2) th/mm3 WBC Differential Differential Comment PT (9.8-11.6) sec INR Ratio APTT (24.3-30.1) sec Sodium 142 (136-145) meq/L Potassium 4.1 (3.5-5.1) meq/L Chloride 105 (98-107) meq/L Carbon Dioxide 28.9 (21.0-32.0) meq/L Anion Gap 8 (5-15) meq/L BUN 12 (7-18) mg/dL Creatinine 0.67 (0.50-1.00) mg/dL Estimated GFR 85 L (>89) mL/min Random Glucose 106 (74-106) mg/dL Lactic Acid (0.4-2.0) mmol/L Calcium 8.7 (8.5-10.1) mg/dL Magnesium 1.9 (1.5-2.5) mg/dL Total Bilirubin 0.6 (0.2-1.0) mg/dL AST 20 (15-37) U/L ALT 19 (10-53) U/L Alkaline Phosphatase 93 (45-117) U/L Total Creatine Kinase 66 (26-192) U/L Troponin I Less than 0.02 L (0.02-0.05) ng/mL B-Natriuretic Peptide (0-100) pg/mL Total Protein 6.6 (6.4-8.2) g/dL Albumin 3.7 (3.4-5.0) g/dL Urine Color (Yellw/Straw) Urine Clarity (Clear) Urine pH (5.0-8.5) Ur Specific Vassar (1.002-1.035) Urine Protein (Neg-Trace) mg/dL Urine Glucose (UA) (Negative) mg/dL Urine Ketones (Negative) mg/dL Urine Occult Blood (Negative) Urine Nitrate (Negative) Urine Bilirubin (Negative) Urine Urobilinogen (Less than 2) mg/dL Ur Leukocyte Esterase (Negative) Urine RBC (0-3) /hpf Urine WBC (0-5) /hpf Urine Mucus (Occasional) /lpf Micro UA Comment Urine Culture Comments Blood Type O Positive Blood Type Recheck Required Antibody Screen Negative 05/09/18 05/09/18 Range/Units 07:50 08:05 WBC (4.0-11.0) th/mm3 RBC (4.00-5.30) mil/mm3 Hgb (11.6-15.3) gm/dL Hct (35.0-46.0) % MCV (80.0-100.0) fL MCH (27.0-34.0) pg MCHC (32.0-36.0) % RDW (11.6-17.2) % Plt Count (150-450) th/mm3 MPV (7.0-11.0) fL Neut % (Auto) (16.0-70.0) % Lymph % (Auto) (9.0-44.0) % Collier % (Auto) (0.0-8.0) % Eos % (Auto) (0.0-4.0) % Baso % (Auto) (0.0-2.0) % Neut # (Auto) (1.8-7.7) th/mm3 Lymph # (Auto) (1.0-4.8) th/mm3 Collier # (Auto) (0.0-0.9) th/mm3 Eos # (Auto) (0.0-0.4) th/mm3 Baso # (Auto) (0.0-0.2) th/mm3 WBC Differential Differential Comment PT (9.8-11.6) sec INR Ratio APTT (24.3-30.1) sec Sodium (136-145) meq/L Potassium (3.5-5.1) meq/L Chloride (98-107) meq/L Carbon Dioxide (21.0-32.0) meq/L Anion Gap (5-15) meq/L BUN (7-18) mg/dL Creatinine (0.50-1.00) mg/dL Estimated GFR (>89) mL/min Random Glucose (74-106) mg/dL Lactic Acid (0.4-2.0) mmol/L Calcium (8.5-10.1) mg/dL Magnesium (1.5-2.5) mg/dL Total Bilirubin (0.2-1.0) mg/dL AST (15-37) U/L ALT (10-53) U/L Alkaline Phosphatase (45-117) U/L Total Creatine Kinase (26-192) U/L Troponin I (0.02-0.05) ng/mL B-Natriuretic Peptide 21 (0-100) pg/mL Total Protein (6.4-8.2) g/dL Albumin (3.4-5.0) g/dL Urine Color Straw (Yellw/Straw) Urine Clarity Clear (Clear) Urine pH 6.0 (5.0-8.5) Ur Specific Vassar 1.005 (1.002-1.035) Urine Protein Negative (Neg-Trace) mg/dL Urine Glucose (UA) Negative (Negative) mg/dL Urine Ketones Negative (Negative) mg/dL Urine Occult Blood Negative (Negative) Urine Nitrate Negative (Negative) Urine Bilirubin Negative (Negative) Urine Urobilinogen Less than 2 (Less than 2) mg/dL Ur Leukocyte Esterase Negative (Negative) Urine RBC Less than 1 (0-3) /hpf Urine WBC Less than 1 (0-5) /hpf Urine Mucus Few H (Occasional) /lpf Micro UA Comment Cath-culture not ind Urine Culture Comments Cath-cult not ind Blood Type Blood Type Recheck Antibody Screen Imaging Data Radiologist's impression: ITS Impressions Cervical Spine CT 05/09/18 07:29 CONCLUSION: 1. No evidence of acute bony or soft tissue trauma. 2. Moderate-sized central disc protrusion at C3-4. 3. Small moderate size left paracentral disc protrusion at C5-6. 4. Mild degenerative disc disease C6-7 with central and right paracentral disc osteophyte complex causing mild epidural effacement. Chest X-Ray 05/09/18 07:29 CONCLUSION: No acute cardiopulmonary disease. T12 compression deformity. Prior L1 cement augmentation. Head CT 05/09/18 07:29 CONCLUSION: 1. No acute intracranial abnormality. Hip X-Ray 05/09/18 07:29 CONCLUSION: Right femoral neck fracture. Pelvis X-Ray 05/09/18 07:29 CONCLUSION: Right femoral neck fracture Intact bony pelvis Discharge Plan Discharge Disposition Patient Disposition: 30 Still Patient Discharge Condition Condition: Stable Discharge Details Diagnosis: Closed hip fracture, COPD (chronic obstructive pulmonary disease), Leukocytosis , Dizziness Physicians Team ED Provider: Cyndi Canchola Primary Care Provider: Chava Doshi Rxs /Orders / Referrals /Forms Prescriptions: No Action baclofen 10 mg Tablet 20 mg PO QID RF: 0 albuterol sulfate [Ventolin HFA] 90 mcg/actuation Hfa Aerosol Inhaler 2 puff INHALATION Q4-6H PRN (Reason: COPD) RF: 0 methotrexate 2.5 mg/mL Solution 10 mg/m2 PO QWEEK RF: 0 Spiriva with HandiHaler aerosol RF: 0 atorvastatin 10 mg Tablet 10 mg PO RF: 0 meloxicam 15 mg Tablet 15 mg PO DAILY RF: 0 levothyroxine 50 mcg Capsule 50 mcg PO DAILY RF: 0 fluticasone-vilanterol [Breo Ellipta] 100-25 mcg/dose Blister With Device 1 inh INHALATION DAILY RF: 0 Discharge Interventions Interventions: Vital Signs Last Done: 05/09/18 08:48 Status ED Status: With Doctor
[2018-05-09 08:10] LABS: Baso # (Auto) 0.1 th/mm3 (0.0-0.2); Baso % (Auto) 0.4 % (0.0-2.0); Eos # (Auto) 0.1 th/mm3 (0.0-0.4); Eos % (Auto) 0.4 % (0.0-4.0); Hemoglobin 10.8 gm/dL (11.6-15.3); Lymph # (Auto) 2.3 th/mm3 (1.0-4.8); Lymph % (Auto) 11.7 % (9.0-44.0); Mean Corpuscular Hemoglobin 20.9 pg (27.0-34.0); Mean Corpuscular Volume 67.3 fL (80.0-100.0); Mean Platelet Volume 7.2 fL (7.0-11.0); Mono # (Auto) 1.3 th/mm3 (0.0-0.9); Neut # (Auto) 15.5 th/mm3 (1.8-7.7); Neut % (Auto) 80.5 % (16.0-70.0); Platelet Count 268 th/mm3 (150-450); Red Blood Count 5.19 mil/mm3 (4.00-5.30); Red Cell Distribution Width 16.3 % (11.6-17.2); White Blood Count 19.2 th/mm3 (4.0-11.0)
[2018-05-09] MEDS ORDERED: Sodium Chlor 0.9% Inj 500 ML IV.SIG ONE (08:14)
[2018-05-09 08:21] LABS: Activated Partial Thrombo Time 23.3 sec (24.3-30.1); INR 1.1 Ratio; Prothrombin Time 10.7 sec (9.8-11.6)
[2018-05-09 08:25] LABS: Alanine Aminotransferase 19 U/L (10-53); Albumin 3.7 g/dL (3.4-5.0); Anion Gap 8 meq/L (5-15); Aspartate Aminotransferase 20 U/L (15-37); Blood Urea Nitrogen 12 mg/dL (7-18); Calcium 8.7 mg/dL (8.5-10.1); Carbon Dioxide 28.9 meq/L (21.0-32.0); Chloride 105 meq/L (98-107); Glomerular Filtration Rate 85 mL/min (>89); Glucose,Random 106 mg/dL (74-106); Potassium 4.1 meq/L (3.5-5.1); Sodium 142 meq/L (136-145)
[2018-05-09 08:29] LABS: Alkaline Phosphatase 93 U/L (45-117); Total Protein 6.6 g/dL (6.4-8.2)
[2018-05-09 08:30] LABS: Creatine Kinase 66 U/L (26-192)
[2018-05-09 08:32] LABS: Bilirubin,Urine Negative (Negative); Clarity,Urine Clear (Clear); Color,Urine Straw (Yellw/Straw); Glucose,Urine (UA) Negative (Negative); Leukocyte Esterase,Urine Negative (Negative); Mucus,Urine Few /lpf (Occasional); Nitrite,Urine Negative (Negative); Specific Gravity,Urine 1.005 (1.002-1.035)
--- NOTE | 2018-05-09 08:46 | CT ---
EXAM DATE: 05/09/2018 8:37 AM EDT AGE/SEX: 77 years / Female INDICATIONS: Pain post fall today. CLINICAL DATA: This is the patient's initial encounter. Patient reports that signs and symptoms have been present for 1 day and indicates a pain score of 10/10. MEDICAL/SURGICAL HISTORY: Chronic obstructive pulmonary disease. None. RADIATION DOSE: 30.97 CTDI (mGy) COMPARISON: No prior exams available for comparison. TECHNIQUE: CT of the head without contrast. Using automated exposure control and adjustment of the mA and/or kV according to patient size, radiation dose was kept as low as reasonably achievable to ob tain optimal diagnostic quality images. DICOM format image data is available electronically for revi ew and comparison. FINDINGS: Cerebrum: The ventricles are normal for age. No evidence of midline shift, mass lesion, hemorrhage or acute infarction. No extraaxial fluid collections are seen. Posterior Fossa: The cerebellum and brainstem are intact. The 4th ventricle is midline. The cerebe llopontine angle is unremarkable. Extracranial: The visualized portion of the orbits is intact. Skull: The calvaria is intact. No evidence of skull fracture. CONCLUSION: 1. No acute intracranial abnormality. Electronically signed by: Shon Lorenzana MD 05/09/2018 8:45 AM EDT
--- NOTE | 2018-05-09 08:54 | CT ---
EXAM DATE: 05/09/2018 8:42 AM EDT AGE/SEX: 77 years / Female INDICATIONS: Pain. Fall today. CLINICAL DATA: This is the patient's initial encounter. Patient reports that signs and symptoms have been present for 1 day and indicates a pain score of 10/10. MEDICAL/SURGICAL HISTORY: Chronic obstructive pulmonary disease. None. RADIATION DOSE: 9.43 CTDI (mGy) COMPARISON: No prior exams available for comparison. TECHNIQUE: Contiguous axial images were obtained using helical multirow detector technique. The vol umetric data was post-processed with multiplanar reconstruction in oblique axial, sagittal, and coron al planes. Using automated exposure control and adjustment of the mA and/or kV according to patient s ize, radiation dose was kept as low as reasonably achievable to obtain optimal diagnostic quality ruiz ges. DICOM format image data is available electronically for review and comparison. FINDINGS: ALIGNMENT: Vertebral bodies are satisfactorily aligned without evidence of listhesis. FACET AND OSSEOUS STRUCTURES: Vertebral body height is well-maintained. There is no evidence of acut e fracture, or destructive changes. There is no significant facet arthropathy. INTERVERTEBRAL DISC SPACES: Mild degenerative disc disease with spondylosis is noted. C2-3: Normal. C3-4: A moderate-sized central disc protrusion with anterior epidural effacement and mild spinal cord effacement is identified. There is no evidence of neural foraminal component. C4-5: No evidence of disc herniation, foraminal encroachment or spinal stenosis. C5-6: A small to moderate sized left paracentral disc protrusion is noted. There is abutment of the a nterior surface of the spinal cord. There is no evidence of neural foraminal component. C6-7: Degenerative disc disease with broad-based disc osteophyte complex is noted. There is mild cent ral and right paracentral epidural effacement without significant spinal stenosis. Abutment of the sp inal cord is noted. There is no significant foraminal encroachment. C7-T1: Unremarkable. NEUROLOGIC STRUCTURES: The spinal cord and nerve roots appear normal. There is no evidence of avril italo. CONCLUSION: 1. No evidence of acute bony or soft tissue trauma. 2. Moderate-sized central disc protrusion at C3-4. 3. Small moderate size left paracentral disc protrusion at C5-6. 4. Mild degenerative disc disease C6-7 with central and right paracentral disc osteophyte complex ca using mild epidural effacement. Electronically signed by: Scott Clemons MD 05/09/2018 8:53 AM EDT
--- NOTE | 2018-05-09 08:56 | XR ---
EXAM DATE: 05/09/2018 8:52 AM EDT AGE/SEX: 77 years / Female INDICATIONS: Fall, right hip pain. CLINICAL DATA: This is the patient's initial encounter. Patient reports that signs and symptoms have been present for 1 day and indicates a pain score of 10/10. MEDICAL/SURGICAL HISTORY: None. None. COMPARISON: [facility], CHEST SINGLE AP, 03/16/2018. . FINDINGS: A single AP view of the chest demonstrates the lungs to be symmetrically aerated without evidence of mass, infiltrate or effusion. The cardiomediastinal contours are unremarkable. Osseous structures a re intact. Prior cement augmentation involving what is felt to be L1. There is a compression deformit y involving T12. CONCLUSION: No acute cardiopulmonary disease. T12 compression deformity. Prior L1 cement augmentation. Electronically signed by: Shon Lorenzana MD 05/09/2018 8:55 AM EDT
--- NOTE | 2018-05-09 08:57 | XR ---
EXAM DATE: 05/09/2018 8:54 AM EDT AGE/SEX: 77 years / Female INDICATIONS: Fall, complains of right hip pain. CLINICAL DATA: This is the patient's initial encounter. Patient reports that signs and symptoms have been present for 1 day and indicates a pain score of 10/10. MEDICAL/SURGICAL HISTORY: None. None. COMPARISON: No prior exams available for comparison. FINDINGS: A basicervical fracture of the right femoral neck is noted. There is no significant angulation or dis traction. Right hemipelvis is intact. CONCLUSION: Right femoral neck fracture. Electronically signed by: Scott Clemons MD 05/09/2018 8:56 AM EDT
--- NOTE | 2018-05-09 08:58 | XR ---
EXAM DATE: 05/09/2018 8:55 AM EDT AGE/SEX: 77 years / Female INDICATIONS: Fall, complains of right hip pain. CLINICAL DATA: This is the patient's initial encounter. Patient reports that signs and symptoms have been present for 1 day and indicates a pain score of 10/10. MEDICAL/SURGICAL HISTORY: None. None. COMPARISON: [facility] [place], HIP RIGHT 2V, 05/09/2018. . FINDINGS: A fracture right femoral neck is identified. The bony pelvis is intact. Left hip is intact and demonstrates mild to moderate arthropathy. CONCLUSION: Right femoral neck fracture Intact bony pelvis Electronically signed by: Scott Clemons MD 05/09/2018 8:57 AM EDT
[2018-05-09] MEDS ORDERED: Morphine Inj 4 MG/ML Vial IV.PUSH ONE (09:02)
[2018-05-09] MEDS ORDERED: Azithromycin Inj 500 MG in Sodium Chlor 0.9% Inj 250 ML IV.SIG ONE (09:05)
[2018-05-09] MEDS ORDERED: Acetaminophen 325 MG Tablet PO PRN (09:57)
[2018-05-09] MEDS ORDERED: Bisacodyl 10 MG Supp RECTAL PRN (09:57)
[2018-05-09] MEDS ORDERED: Temazepam 15 MG Capsule PO PRN (09:57)
[2018-05-09] MEDS ORDERED: Morphine Inj 4 MG/ML Vial IV.PUSH PRN (10:21)
[2018-05-09] MEDS: Sod Chloride 0.9% Inj 1,000 ML IV.CONT SCH (11:29)
--- NOTE | 2018-05-09 11:29 | P.HP ---
History of Present Illness Primary Care Physician: Chava Doshi Chief Complaint: Right hip pain. History of Present Illness: Ms. Durán is a pleasant 77-year-old female with a history of COPD, coronary artery disease who presents to the emergency department on 2017 after she fell and hit her head. She did not lose consciousness. ED workup indicated right femoral neck fracture. This morning around 6:40 AM patient woke up with the barking of 1 of her 3 dogs. Patient came to the kitchen to let the dogs out and subsequently she was going back to her room. On her way to the room, she hit the wall and fell. She denies any chest pain, dizziness, shortness of breath. She could not specify why she fell. She was able to come back to the kitchen and call for help. At the time of this interview, patient is somewhat lethargic but complains of no chest pain, shortness of breath, fever or chills. She complains of right hip pain. No changes in bowel or bladder habits. Except for back pain for over a month, patient lives alone and functional. She does not require any supplemental oxygen. She has 2 cardiac stents that were placed more than 2 years ago. She does not get any exertional chest pain or dyspnea. - Diagnosis (1) CAD (coronary artery disease) (2) Closed hip fracture (3) Rheumatoid arthritis (4) COPD (chronic obstructive pulmonary disease) Inpatient Certification: I certify that the inpatient services were ordered in accordance with Medicare regulations governing the order. This includes certification that hospital inpatient services are reasonable and necessary and in the case of services not specified as inpatient-only under 42 CFR 419.22(n), that they are appropriately provided as inpatient services in accordance to with the 2-midnight benchmark under 43 CFR 412.3(e) Estimated Total Length of Stay (Days): 3 Plans for Post Hospital Care: SNF Review of Systems All other systems reviewed negative except as stated in HPI Musculoskeletal: Reports back pain, Reports joint pain PMFSH - History History Provided By: Patient - Medical History Medical History: Medical History (Last Reviewed 05/09/18 @ 07:43 by Cyndi Canchola MD) Back arthralgia (Acute) Rheumatoid arthritis (Acute) COPD (chronic obstructive pulmonary disease) (Acute) Hypercholesteremia (Acute) Thalassemia (Acute) Hypothyroidism (Acute) - Surgical History Surgical History: Surgical History (Last Reviewed 05/09/18 @ 07:43 by Cyndi Canchola MD) Hx of heart artery stent (Acute) - Family History Family History: Family History (Last Reviewed 05/09/18 @ 07:43 by Cyndi Canchola MD) Other Family history of colon cancer - Tobacco History Second Hand Smoke Exposure: No Smoking Status: Former smoker Tobacco Type: Cigarettes - Alcohol History How Often Do You Have a Drink Containing Alcohol: Never - Substance Use History Substance History: No History of Abuse - Travel History Recent Travel in the [place] Within the Last 8 Weeks: No Recent Travel Out of the Country Within the Last 8 Weeks: No - Immunization History Tetanus Immunization: Unsure Hx Influenza Vaccine This Season: Yes Medications and Allergies Active Medications: Active Medications Acetaminophen (Tylenol) 650 mg PO Q4H PRN PRN Reason: Headache, pain 1-5, fever Hydrocodone Bitart/Acetaminophen ([place] 5/325) 1 tab PO Q6H PRN PRN Reason: PAIN SCALE 6 TO 10 Al Hydroxide/Mg Hydroxide (Milk Of Magnesia Liq) 30 ml PO Q12H PRN PRN Reason: Mild Constipation Albuterol (Duoneb Neb (Prn)) 1 ampul NEB Q4HR NEB PRN PRN Reason: DYSPNEA Atorvastatin Calcium (Lipitor) 10 mg PO DAILY ERIC Bisacodyl (Dulcolax Supp) 10 mg RECTAL DAILY PRN PRN Reason: SEVERE CONSITIPATION Fluticasone/Vilanterol (Breo Ellipta 100/25 Mcg Inh) puff INH DAILY ERIC Sodium Chloride (Ns Inj) 1,000 mls @ 75 mls/hr IV.CONT .[id number] ERIC Lactulose (Lactulose Liq) 30 ml PO DAILY PRN PRN Reason: SEVERE CONSITIPATION Morphine Sulfate (Morphine Inj) 4 mg IV.PUSH Q4H PRN PRN Reason: BREAKTHROUGH PAIN Non-Formulary Medication (Albuterol Sulfate) 2 puff INHALATION Q4-6H PRN PRN Reason: COPD Non-Formulary Medication (Levothyroxine [Levothyroxine]) 50 mcg PO DAILY ERIC Sennosides (Senokot) 17.2 mg PO Q12H PRN PRN Reason: Moderate Constipation Sodium Chloride (Ns Flush) 2 ml IV.FLUSH PRN PRN PRN Reason: FLUSH AFTER USING IV ACCESS Last Admin: 05/09/18 09:15 Dose: 2 ml Temazepam (Restoril) 15 mg PO HS PRN PRN Reason: INSOMNIA Allergies Allergy/AdvReac Type Severity Reaction Status Date / Time No Known Allergies Allergy Verified 05/09/18 08:05 Home Medications Medication Instructions Recorded Confirmed Type Spiriva with HandiHaler 05/07/18 History albuterol sulfate [Ventolin HFA] 2 puff INHALATION Q4-6H PRN 05/07/18 05/09/18 History atorvastatin 10 mg PO DAILY 05/07/18 05/09/18 History baclofen 20 mg PO QID 05/07/18 05/09/18 History fluticasone-vilanterol [Breo 1 inh INHALATION DAILY 05/07/18 05/09/18 History Ellipta] levothyroxine 50 mcg PO DAILY 05/07/18 05/09/18 History meloxicam 15 mg PO DAILY 05/07/18 05/09/18 History methotrexate 10 mg/m2 PO QWEEK 05/07/18 05/09/18 History Exam Vital signs: Vital Signs 05/09/18 07:37 05/09/18 07:44 05/09/18 08:48 Temperature 98.4 F Pulse Rate 92 H 89 Respiratory Rate 15 21 Blood Pressure 183/79 H 188/93 H Pulse Oximetry 97 93 L 95 05/09/18 10:58 Temperature Pulse Rate 90 Respiratory Rate 16 Blood Pressure 155/74 H Pulse Oximetry 97 Intake & Output 05/08/18 05/09/18 05/09/18 18:59 06:59 18:59 Intake Total 750 / 750 Balance 750 / 750 Weight 49.895 kg Intake: IV 750 / 750 Azithromycin Inj 500 MG In NS 250 / 250 Inj 250 ML @ 250 mls/hr IV.SIG ONCE ONE Rx#:[id number] NS Inj 500 ML @ Wide Open IV. 500 / 500 SIG BOLUS ONE Rx#:[id number] Narrative: GENERAL: This is a well-nourished, well-developed patient, in no apparent distress. Appears somewhat lethargic. SKIN: No rashes, ecchymoses or lesions. Warm and dry. HEAD: Atraumatic. Normocephalic. No temporal or scalp tenderness. EYES: Pupils equal round and reactive. No injection or drainage. ENT: Nose without bleeding, purulent drainage or septal hematoma. Airway patent. NECK: Trachea midline. No lymphadenopathy. Supple, nontender, no meningeal signs. CARDIOVASCULAR: Regular rate and rhythm without murmurs, gallops, or rubs. No JVD. RESPIRATORY: Clear to auscultation. Breath sounds equal bilaterally. No wheezes , rales, or rhonchi. GASTROINTESTINAL: Abdomen soft, non-tender, nondistended. No guarding. MUSCULOSKELETAL: Extremities without clubbing, cyanosis, or edema. Unable to lift up right leg due to hip pain. Able to move all toes. NEUROLOGICAL: Awake and alert. Cranial nerves II through XII intact. No focal neurological deficits. Normal speech. Results - Labs CBC & Chem 7: 05/09/18 07:50 05/09/18 07:50 Labs: Laboratory Results - last 24 hr 05/09/18 05/09/18 05/09/18 07:00 07:50 07:50 WBC 19.2 H RBC 5.19 Hgb 10.8 L Hct 35.0 MCV 67.3 L MCH 20.9 L MCHC 31.0 L RDW 16.3 Plt Count 268 MPV 7.2 Neut % (Auto) 80.5 H Lymph % (Auto) 11.7 [place] % (Auto) 7.0 Eos % (Auto) 0.4 Baso % (Auto) 0.4 Neut # (Auto) 15.5 H Lymph # (Auto) 2.3 [place] # (Auto) 1.3 H Eos # (Auto) 0.1 Baso # (Auto) 0.1 WBC Differential . Differential Comment Auto diff final PT 10.7 INR 1.1 APTT 23.3 L Sodium Potassium Chloride Carbon Dioxide Anion Gap BUN Creatinine Estimated GFR Random Glucose Lactic Acid 1.2 Calcium Magnesium Total Bilirubin AST ALT Alkaline Phosphatase Total Creatine Kinase Troponin I B-Natriuretic Peptide Total Protein Albumin Urine Color Urine Clarity Urine pH Ur Specific [place] Urine Protein Urine Glucose (UA) Urine Ketones Urine Occult Blood Urine Nitrate Urine Bilirubin Urine Urobilinogen Ur Leukocyte Esterase Urine RBC Urine WBC Urine Mucus Micro UA Comment Urine Culture Comments Blood Type Blood Type Recheck Antibody Screen 05/09/18 05/09/18 05/09/18 07:50 07:50 07:50 WBC RBC Hgb Hct MCV MCH MCHC RDW Plt Count MPV Neut % (Auto) Lymph % (Auto) [place] % (Auto) Eos % (Auto) Baso % (Auto) Neut # (Auto) Lymph # (Auto) [place] # (Auto) Eos # (Auto) Baso # (Auto) WBC Differential Differential Comment PT INR APTT Sodium 142 Potassium 4.1 Chloride 105 Carbon Dioxide 28.9 Anion Gap 8 BUN 12 Creatinine 0.67 Estimated GFR 85 L Random Glucose 106 Lactic Acid Calcium 8.7 Magnesium 1.9 Total Bilirubin 0.6 AST 20 ALT 19 Alkaline Phosphatase 93 Total Creatine Kinase 66 Troponin I Less than 0.02 L B-Natriuretic Peptide Total Protein 6.6 Albumin 3.7 Urine Color Urine Clarity Urine pH Ur Specific [place] Urine Protein Urine Glucose (UA) Urine Ketones Urine Occult Blood Urine Nitrate Urine Bilirubin Urine Urobilinogen Ur Leukocyte Esterase Urine RBC Urine WBC Urine Mucus Micro UA Comment Urine Culture Comments Blood Type O Positive Blood Type Recheck Required Antibody Screen Negative 05/09/18 05/09/18 07:50 08:05 WBC RBC Hgb Hct MCV MCH MCHC RDW Plt Count MPV Neut % (Auto) Lymph % (Auto) [place] % (Auto) Eos % (Auto) Baso % (Auto) Neut # (Auto) Lymph # (Auto) [place] # (Auto) Eos # (Auto) Baso # (Auto) WBC Differential Differential Comment PT INR APTT Sodium Potassium Chloride Carbon Dioxide Anion Gap BUN Creatinine Estimated GFR Random Glucose Lactic Acid Calcium Magnesium Total Bilirubin AST ALT Alkaline Phosphatase Total Creatine Kinase Troponin I B-Natriuretic Peptide 21 Total Protein Albumin Urine Color Straw Urine Clarity Clear Urine pH 6.0 Ur Specific [place] 1.005 Urine Protein Negative Urine Glucose (UA) Negative Urine Ketones Negative Urine Occult Blood Negative Urine Nitrate Negative Urine Bilirubin Negative Urine Urobilinogen Less than 2 Ur Leukocyte Esterase Negative Urine RBC Less than 1 Urine WBC Less than 1 Urine Mucus Few H Micro UA Comment Cath-culture not ind Urine Culture Comments Cath-cult not ind Blood Type Blood Type Recheck Antibody Screen - Imaging Impressions Cervical Spine CT 05/09/18 07:29 CONCLUSION: 1. No evidence of acute bony or soft tissue trauma. 2. Moderate-sized central disc protrusion at C3-4. 3. Small moderate size left paracentral disc protrusion at C5-6. 4. Mild degenerative disc disease C6-7 with central and right paracentral disc osteophyte complex causing mild epidural effacement. Chest X-Ray 05/09/18 07:29 CONCLUSION: No acute cardiopulmonary disease. T12 compression deformity. Prior L1 cement augmentation. Head CT 05/09/18 07:29 CONCLUSION: 1. No acute intracranial abnormality. Hip X-Ray 05/09/18 07:29 CONCLUSION: Right femoral neck fracture. Pelvis X-Ray 05/09/18 07:29 CONCLUSION: Right femoral neck fracture Intact bony pelvis Caprini VTE Risk Assessment Caprini VTE Risk Assessment: Moderate/High Risk (score >= 2) Caprini Risk Assessment Model: Point Value = 1 Point Value = 2 Point Value = 3 Point Value = 5 Age 41-60 Minor surgery BMI > 25 kg/m2 Swollen legs Varicose veins or History of unexplained or recurrent spontaneous Oral contraceptives or hormone replacement Sepsis (< 1 month) Serious lung disease, including pneumonia (< 1 month) Abnormal pulmonary function Acute myocardial infarction Congestive heart failure (< 1 month) History of inflammatory bowel disease Medical patient at bed rest Age 61-74 Arthroscopic surgery Major open surgery (> 45 min) Laparoscopic surgery (> 45 min) Malignancy Confined to bed (> 72 hours) Immobilizing plaster cast Central venous access Age >= 75 History of VTE Family history of VTE Factor V Leiden Prothrombin [id number] Lupus anticoagulant Anticardiolipin antibodies Elevated serum homocysteine Heparin-induced thrombocytopenia Other congenital or acquired thrombophilia Stroke (< 1 month) Elective arthroplasty Hip, pelvis, or leg fracture Acute spinal cord injury (< 1 month) Prophylaxis Regimen: Total Risk Factor Score Risk Level Prophylaxis Regimen 0-1 Low Early ambulation 2 Moderate Order ONE of the following: *Sequential Compression Device (SCD) *Heparin 5000 units SQ BID 3-4 Higher Order ONE of the following medications: *Heparin 5000 units SQ TID *Enoxaparin/Lovenox 40 mg SQ daily (WT < 150 kg, CrCl > 30 mL/min) *Enoxaparin/Lovenox 30 mg SQ daily (WT < 150 kg, CrCl > 10-29 mL/min) *Enoxaparin/Lovenox 30 mg SQ BID (WT < 150 kg, CrCl > 30 mL/min) AND/OR *Sequential Compression Device (SCD) 5 or more Highest Order ONE of the following medications: *Heparin 5000 units SQ TID (Preferred with Epidurals) *Enoxaparin/Lovenox 40 mg SQ daily (WT < 150 kg, CrCl > 30 mL/min) *Enoxaparin/Lovenox 30 mg SQ daily (WT < 150 kg, CrCl > 10-29 mL/min) *Enoxaparin/Lovenox 30 mg SQ BID (WT < 150 kg, CrCl > 30 mL/min) AND *Sequential Compression Device (SCD) Assessment and Plan - Assessment (1) CAD (coronary artery disease) Code(s): I25.10 - Atherosclerotic heart disease of [place] coronary artery without angina pectoris Status: Acute (2) Closed hip fracture Code(s): S72.009A - Fracture of unspecified part of neck of unspecified femur, initial encounter for closed fracture Status: Acute (3) Rheumatoid arthritis Code(s): M06.9 - Rheumatoid arthritis, unspecified Status: Acute (4) COPD (chronic obstructive pulmonary disease) Code(s): J44.9 - Chronic obstructive pulmonary disease, unspecified Status: Acute - Plan Ms. Durán is a pleasant 77-year-old female with a history of rheumatoid arthritis, CAD, COPD who presents to the emergency department after she fell at home this morning. She denies any dizziness, chest pain, shortness of breath, fever or chills. She could not explain why she fell but she did not feel dizziness or lightheadedness. Acute fall at home Right femoral neck fracture -Orthopedic surgery consulted for femoral neck fracture. -We will continue with acetaminophen, [place], morphine all as needed for pain. -Bowel regimen in place. -We will obtain carotid ultrasound. CT head was unremarkable for any acute findings. EKG unremarkable for any ischemic changes. COPD -patient received azithromycin in the ED. Will continue DuoNeb as needed -Currently she is on 2 L and oxygen saturation around 96%. We can likely wean her off oxygen. CAD -patient has 2 cardiac stents that were placed more than 2 years ago. No recent cardiac complaints. Medical clearance: It is somewhat difficult to assess patient's functional status prior to this hospitalization. However it appears that she was living on her own, doing her daily activities of living. No recent chest pain. No evidence of COPD exacerbation. Will obtain carotid ultrasound due to questionable dizziness. However patient denies feeling dizzy at home. Patient is likely low to moderate risk for surgery. Full code. SCDs. (2) Closed hip fracture Qualifiers: Encounter type: initial encounter Laterality: right Qualified Code(s): S72.001A - Fracture of unspecified part of neck of right femur, initial encounter for closed fracture (4) COPD (chronic obstructive pulmonary disease) Qualifiers: COPD type: COPD with acute exacerbation Qualified Code(s): J44.1 - Chronic obstructive pulmonary disease with (acute) exacerbation
--- NOTE | 2018-05-09 12:33 | US ---
EXAM DATE: 05/09/2018 12:06 PM EDT AGE/SEX: 77 years / Female INDICATIONS: Dizziness. CLINICAL DATA: This is the patient's initial encounter. Patient reports that signs and symptoms have been present for 1 day and indicates a pain score of 0/10. MEDICAL/SURGICAL HISTORY: Chronic obstructive pulmonary disease. Hypercholesterolemia. Hypoth yroidism. Rheumatoid arthritis. Thalassemia. Back arthralgia. . Cardiac stent. COMPARISON: No prior exams available for comparison. VELOCITY PARAMETERS: ICA/CCA Ratio: Right 1.1 , Left 1.0 ICA: Right 83.5 cm/sec, Left 76.5 cm/sec CCA: Right 78.3 cm/sec, Left 80.2 cm/sec ECA: Right 81.6 cm/sec, Left 82.8 cm/sec Vertebral: Right 59.8 cm/sec antegrade, Left 48.5 cm/sec antegrade FINDINGS: Right Carotid: Mild arteriosclerotic plaque is visualized.The waveforms are within normal limits. Left Carotid: Mild arteriosclerotic plaque is visualized. The waveforms are within normal limits. Other: None. CONCLUSION: 1. There is mild atherosclerotic plaquing at both carotid bifurcations. 2. No focal high-grade or hemodynamically significant stenosis. Electronically signed by: Chucky Alfaro MD 05/09/2018 12:32 PM EDT
--- NOTE | 2018-05-09 13:20 | ECG ---
Date Performed: 05/09/2018 Time Performed: 08:51:01 PTAGE: 77 years EKG: Sinus rhythm POSSIBLE LEFT ATRIAL ENLARGEMENT POSSIBLE LEFT VENTRICULAR HYPERTROPHY ABNORMAL ECG Since the PREVIOUS TRACING , no significant change noted PREVIOUS TRACIN04/15/2015 17.49 DOCTOR: Riky Castellanos Interpretating Date/Time 05/09/2018 13:16:02
[2018-05-10] MEDS: Sod Chloride 0.9% Inj 1,000 ML IV.CONT SCH (01:20)
[2018-05-10] MEDS ORDERED: Sodium Chlor 0.9% Inj 250 ML ONE (06:56)
--- NOTE | 2018-05-10 06:59 | P.PNOP ---
Subjective Interval history: s/p fall right hip pain. no other complaints. Physical Exam Vital signs: Vital Signs 05/09/18 07:37 05/09/18 07:44 05/09/18 08:48 Temperature 98.4 F Pulse Rate 92 H 89 Respiratory Rate 15 21 Blood Pressure 183/79 H 188/93 H Pulse Oximetry 97 93 L 95 05/09/18 10:58 05/09/18 13:03 05/09/18 14:25 Temperature 98.9 F Pulse Rate 90 80 101 H Respiratory Rate 16 20 18 Blood Pressure 155/74 H 165/65 H Pulse Oximetry 97 100 05/09/18 17:37 05/09/18 20:00 05/09/18 23:16 Temperature 97.3 F L Pulse Rate 97 H 105 H 105 H Respiratory Rate 20 18 18 Blood Pressure 154/57 H 169/83 H Pulse Oximetry 92 L 05/09/18 23:57 05/10/18 00:00 05/10/18 04:00 Temperature 97.8 F 98.2 F Pulse Rate 91 H 100 H 103 H Respiratory Rate 19 18 Blood Pressure 127/64 169/75 H Pulse Oximetry 93 L 91 L Intake & Output 05/09/18 05/09/18 05/10/18 06:59 18:59 06:59 Intake Total 750 / 750 1240 / 1240 Output Total 550 / 550 Balance 750 / 750 690 / 690 Weight 49.895 kg 49.89 kg Intake: IV 750 / 750 1000 / 1000 NS Inj 1,000 ML @ 75 mls/hr IV. 1000 / 1000 CONT .[id number] ERIC Rx#:[id number] Azithromycin Inj 500 MG In NS 250 / 250 Inj 250 ML @ 250 mls/hr IV.SIG ONCE ONE Rx#:[id number] NS Inj 500 ML @ Wide Open IV. 500 / 500 SIG BOLUS ONE Rx#:[id number] Oral 240 / 240 Output: Urine 550 / 550 Other: Date of Last Bowel Movement 05/07/18 05/07/18 Weight On Admission 49.895 kg Narrative: RLE: pain with motion of hip. nvi distally - Urinary Catheter Management Straight Cath placed during this visit: yes, but has since been removed by the nurse Reason for continuing: Not indwelling catheter Insertion date: 05/09/18 Insertion time: 08:05 Removal date: 05/09/18 Removal time: 08:05 Indwelling Urethral Catheter Cath placed during this visit: yes Reason for continuing: Other continuation reason Insertion date: 05/09/18 Insertion time: 09:24 Results - Labs CBC & Chem 7: 05/09/18 07:50 05/09/18 07:50 Laboratory Results - last 24 hr 05/09/18 05/09/18 05/09/18 07:00 07:50 07:50 WBC 19.2 H RBC 5.19 Hgb 10.8 L Hct 35.0 MCV 67.3 L MCH 20.9 L MCHC 31.0 L RDW 16.3 Plt Count 268 MPV 7.2 Neut % (Auto) 80.5 H Lymph % (Auto) 11.7 [place] % (Auto) 7.0 Eos % (Auto) 0.4 Baso % (Auto) 0.4 Neut # (Auto) 15.5 H Lymph # (Auto) 2.3 [place] # (Auto) 1.3 H Eos # (Auto) 0.1 Baso # (Auto) 0.1 WBC Differential . Differential Comment Auto diff final PT 10.7 INR 1.1 APTT 23.3 L Sodium Potassium Chloride Carbon Dioxide Anion Gap BUN Creatinine Estimated GFR Random Glucose Lactic Acid 1.2 Calcium Magnesium Total Bilirubin AST ALT Alkaline Phosphatase Total Creatine Kinase Troponin I B-Natriuretic Peptide Total Protein Albumin Urine Color Urine Clarity Urine pH Ur Specific [place] Urine Protein Urine Glucose (UA) Urine Ketones Urine Occult Blood Urine Nitrate Urine Bilirubin Urine Urobilinogen Ur Leukocyte Esterase Urine RBC Urine WBC Urine Mucus Micro UA Comment Urine Culture Comments Blood Type Blood Type Recheck Antibody Screen 05/09/18 05/09/18 05/09/18 07:50 07:50 07:50 WBC RBC Hgb Hct MCV MCH MCHC RDW Plt Count MPV Neut % (Auto) Lymph % (Auto) [place] % (Auto) Eos % (Auto) Baso % (Auto) Neut # (Auto) Lymph # (Auto) [place] # (Auto) Eos # (Auto) Baso # (Auto) WBC Differential Differential Comment PT INR APTT Sodium 142 Potassium 4.1 Chloride 105 Carbon Dioxide 28.9 Anion Gap 8 BUN 12 Creatinine 0.67 Estimated GFR 85 L Random Glucose 106 Lactic Acid Calcium 8.7 Magnesium 1.9 Total Bilirubin 0.6 AST 20 ALT 19 Alkaline Phosphatase 93 Total Creatine Kinase 66 Troponin I Less than 0.02 L B-Natriuretic Peptide Total Protein 6.6 Albumin 3.7 Urine Color Urine Clarity Urine pH Ur Specific [place] Urine Protein Urine Glucose (UA) Urine Ketones Urine Occult Blood Urine Nitrate Urine Bilirubin Urine Urobilinogen Ur Leukocyte Esterase Urine RBC Urine WBC Urine Mucus Micro UA Comment Urine Culture Comments Blood Type O Positive Blood Type Recheck Required Antibody Screen Negative 05/09/18 05/09/18 07:50 08:05 WBC RBC Hgb Hct MCV MCH MCHC RDW Plt Count MPV Neut % (Auto) Lymph % (Auto) [place] % (Auto) Eos % (Auto) Baso % (Auto) Neut # (Auto) Lymph # (Auto) [place] # (Auto) Eos # (Auto) Baso # (Auto) WBC Differential Differential Comment PT INR APTT Sodium Potassium Chloride Carbon Dioxide Anion Gap BUN Creatinine Estimated GFR Random Glucose Lactic Acid Calcium Magnesium Total Bilirubin AST ALT Alkaline Phosphatase Total Creatine Kinase Troponin I B-Natriuretic Peptide 21 Total Protein Albumin Urine Color Straw Urine Clarity Clear Urine pH 6.0 Ur Specific [place] 1.005 Urine Protein Negative Urine Glucose (UA) Negative Urine Ketones Negative Urine Occult Blood Negative Urine Nitrate Negative Urine Bilirubin Negative Urine Urobilinogen Less than 2 Ur Leukocyte Esterase Negative Urine RBC Less than 1 Urine WBC Less than 1 Urine Mucus Few H Micro UA Comment Cath-culture not ind Urine Culture Comments Cath-cult not ind Blood Type Blood Type Recheck Antibody Screen - Imaging Impressions Carotid Doppler Study 05/09/18 00:00 CONCLUSION: 1. There is mild atherosclerotic plaquing at both carotid bifurcations. 2. No focal high-grade or hemodynamically significant stenosis. Cervical Spine CT 05/09/18 07:29 CONCLUSION: 1. No evidence of acute bony or soft tissue trauma. 2. Moderate-sized central disc protrusion at C3-4. 3. Small moderate size left paracentral disc protrusion at C5-6. 4. Mild degenerative disc disease C6-7 with central and right paracentral disc osteophyte complex causing mild epidural effacement. Chest X-Ray 05/09/18 07:29 CONCLUSION: No acute cardiopulmonary disease. T12 compression deformity. Prior L1 cement augmentation. Head CT 05/09/18 07:29 CONCLUSION: 1. No acute intracranial abnormality. Hip X-Ray 05/09/18 07:29 CONCLUSION: Right femoral neck fracture. Pelvis X-Ray 05/09/18 07:29 CONCLUSION: Right femoral neck fracture Intact bony pelvis Assessment and Plan - Assessment and Plan 1) Right Intertroch hip Fx -npo -consents -plan for surgery today with [facility]
[2018-05-10] MEDS ORDERED: Famotidine PF Inj 20 MG/2 ML Vial ONE (07:15)
[2018-05-10] MEDS ORDERED: Bupivacaine/Epinephrine Inj 0.25% 50 ML Vial ONE (07:36)
[2018-05-10] MEDS ORDERED: Promethazine 25 MG Supp RECTAL PRN (08:08)
--- NOTE | 2018-05-10 08:14 | P.OP ---
- Preoperative Diagnosis (1) Intertrochanteric fracture of right hip Date of procedure: 05/10/18 Procedure: Right hip reduction and intramedullary alma fixation Anesthesia: SANDEEP Surgeon: Franklin Carrasco MD Reconciliation Clerk: BRIAN Marx PA-C The surgical procedure was assisted by my physician anesthesiology physician assistant. My P.A. presence was necessary throughout this case for the manipulation and positioning of the surgical extremity. My P.A. was assisting me throughout the duration of this procedure. The skill set of a physician anesthesiology physician assistant was medically necessary to complete this procedure. During the surgical case the surgical manager was working at the back table and the physician anesthesiology physician assistant was directly assisting me. Operation and Findings: Implants used: Biomet 11 mm short troch nail Plan of activity: Weight-bear as tolerated Patient was seen and evaluated preoperatively. The patient has significant hip pain from intertrochanteric hip fracture. The risk and benefits of surgery were discussed in depth with the patient to include bleeding infection nonunion malunion and need for hip replacement painful hardware as well as medical competitions including but not stroke heart attack and . Informed consent was obtained. Operative site was marked. Patient was brought to the operating room and placed on fracture table. IV sedation was administered by anesthesiologist. Timeout procedure was performed. Hip and leg were prepped with alcohol followed by DuraPrep and draped in the usual sterile fashion. IV antibiotics were given prior to incision. Procedure began with reduction of fracture. Traction was applied. The leg was manipulated to achieve reduction. Excellent reduction was achieved. Fluoroscopy was used to confirm reduction. A three inch incision was made proximal to the trochanter. Subcutaneous tissue was dissected bluntly. Guidepin was placed at the tip of the trochanter and advanced into the femoral canal. Fluoroscopy confirmed appropriate guidepin placement. A opening reamer was placed over the guidepin. The nail was attached to the insertion handle. Nail was now placed through the tip of the trochanter into the femoral canal. Fluoroscopy confirmed appropriate nail placement. A second incision was made over the lateral thigh. Cannulas were placed through the insertion handle down to the femur. Guidepin was now placed through the femoral nail into the center of the femoral head. Fluoroscopy confirmed appropriate guidepin placement. Screw length was measured. Cannulated drill was placed over the guidepin. Appropriate length lag screw was now placed. Traction was released and compression was applied. The set screw was now tightened in dynamic mode. Using the insertion handle as a guide a distal interlocking screw was drilled and placed. Final fluoroscopy revealed well aligned fracture with well-placed hardware. Incision was closed with 3-0 Vicryl and katja. Sterile dressings were applied. Patient was awakened and transferred to recovery room.
[2018-05-10] MEDS ORDERED: Post-op Orders (for Pharmacy) OTHER STA (08:35)
[2018-05-10] MEDS ORDERED: fentaNYL Citrate Inj 100 MCG/2 ML Ampul ONE (08:49)
[2018-05-10] MEDS ORDERED: *Ondansetron Inj 4 MG/2 ML Vial PERIprocedural Use ONLY ONE (08:56)
[2018-05-10] MEDS ORDERED: LEVOTHYROXINE 50 MCG PO SCH (09:00)
--- NOTE | 2018-05-10 09:01 | MB ---
cc: Franklin Lazaro MD DATE: 05/10/2018 REASON FOR CONSULTATION: Right hip intertrochanteric fracture. HISTORY OF PRESENT ILLNESS: Nirmala is a 77-year-old female with multiple medical problems including COPD and coronary artery disease. She had a fall on 05/09/2018. She did hit her head. She did not have loss of consciousness. She states that she woke up hearing a dog bark. She went to the kitchen to let the dogs out. She was going back to her room. She does not specifically know why she fell. She may have become dizzy. After her fall, she was unable to stand or ambulate. She had immediate right hip pain. She presented to the emergency room where x-rays revealed a right hip intertrochanteric fracture. Pain is worse with movement and is improved with rest. Currently, her chief complaint is her right hip. PAST MEDICAL HISTORY: Illnesses, rheumatoid arthritis, COPD, high cholesterol, thalassemia, hypothyroidism. PAST SURGICAL HISTORY: Coronary artery stent placement. ALLERGIES: NO KNOWN DRUG ALLERGIES. MEDICATIONS: Please see EMR for a complete list of inpatient medications. OUTPATIENT MEDICATIONS: Include: 1. Albuterol. 2. Spiriva. 3. Atorvastatin. 4. Baclofen. 5. Levothyroxine. 6. Meloxicam. 7. Methotrexate. SOCIAL HISTORY: The patient has quit smoking. She denies alcohol or drug use. FAMILY HISTORY: Positive for a history of colon cancer. REVIEW OF SYSTEMS: The patient denies fevers or chills, weight loss, headache, visual changes, hearing loss, chest pain, palpitations, shortness of breath, nausea, vomiting, urinary or bowel changes, neck or back pain, skin rashes, weakness or numbness of extremities, anxiety or depression. She complains of right hip pain. LABORATORY DATA: The patient has a white blood cell count of 19.2, hematocrit of 67.3 and platelet count of 268. INR is 1.1. BUN is 12, creatinine 0.67. PHYSICAL EXAMINATION: GENERAL: The patient is a pleasant 77-year-old female. She is awake and alert. She is alert and oriented. She is in no acute distress. VITAL SIGNS: Temperature 98.2, pulse 103, respirations 18, blood pressure 116/75, O2 saturations 91% on room air. HEAD: The patient is normocephalic. EYES: Pupils are equal. NECK: Soft, nontender. The trachea is midline. ABDOMEN: Soft, nontender, nondistended. EXTREMITIES: Examination of the bilateral upper extremities reveals no pain with shoulder, elbow or wrist motion. She has intact sensation in all fingers. She has good cap refill in all fingers. Skin is intact. Radial pulses are palpable. Examination of the left leg reveals no pain with hip, knee or ankle motion. Skin is intact. Dorsalis pedis pulses palpable. Sensation is intact. Examination of the right leg reveals pain with any hip motion. Right leg is shortened and externally rotated. She has no tenderness around her knee, tibia or ankle. Skin is intact. Dorsalis pedis pulses palpable. X-RAYS: X-rays of right hip are reviewed. X-rays reveal displaced right intertrochanteric hip fracture. IMPRESSION: 1. Chronic obstructive pulmonary disease. 2. Coronary artery disease. 3. Probable osteoporosis. 4. Right hip intertrochanteric fracture. PLAN: Treatment options were discussed with the patient. At this point, I would recommend surgery for reduction and intramedullary fixation of the right femur. Risks of surgery include bleeding, infection, injury to arteries, nerves or blood vessels, nonunion, malunion, painful hardware, as well as medical complications including blood clot, stroke, heart attack and . All questions were answered. I will plan on surgery today. Postoperatively, I will consult physical therapy. She will also be placed on Lovenox for DVT prophylaxis. I will start her on calcium and vitamin D for osteoporosis. A mid-level provider in my office, nurse practitioner or PA, may see this patient on a follow-up basis and continue to implement the objective of this plan including: Starting or adjusting medications, injections of muscle, tendon, bursa or joints, cast application, orthotic or brace application, physical therapy, further radiographic studies including x-ray, MRI, CT, ultrasounds or bone scan, vascular studies, neurologic studies, or other specialist consultations, and proceeding with surgical management as appropriate. MD GABI Adhikari/CHERYL , 08:21 AM , 09:00 AM
--- NOTE | 2018-05-10 09:58 | XR ---
EXAM DATE: 05/10/2018 9:53 AM EDT AGE/SEX: 77 years / Female INDICATIONS: Right hip ORIF. CLINICAL DATA: This is the patient's initial encounter. Patient reports that signs and symptoms have been present for 1 day and indicates a pain score of Nonresponsive. MEDICAL/SURGICAL HISTORY: None. None. COMPARISON: No prior exams available for comparison. FINDINGS: Anatomic alignment following ORIF right hip. CONCLUSION: Anatomic alignment. Electronically signed by: Satya Valdes MD 05/10/2018 9:57 AM EDT
--- NOTE | 2018-05-10 10:06 | P.PNOP ---
Subjective Interval history: Transferred to PACU in stable condition Physical Exam Vital signs: Vital Signs 05/09/18 10:58 05/09/18 13:03 05/09/18 14:25 Temperature 98.9 F Pulse Rate 90 80 101 H Respiratory Rate 16 20 18 Blood Pressure 155/74 H 165/65 H Pulse Oximetry 97 100 05/09/18 17:37 05/09/18 20:00 05/09/18 23:16 Temperature 97.3 F L Pulse Rate 97 H 105 H 105 H Respiratory Rate 20 18 18 Blood Pressure 154/57 H 169/83 H Pulse Oximetry 92 L 05/09/18 23:57 05/10/18 00:00 05/10/18 04:00 Temperature 97.8 F 98.2 F Pulse Rate 91 H 100 H 96 H Respiratory Rate 19 18 Blood Pressure 127/64 169/75 H Pulse Oximetry 93 L 91 L Intake & Output 05/09/18 05/10/18 05/10/18 18:59 06:59 18:59 Intake Total 750 / 750 1240 / 1240 800 / 800 Output Total 550 / 550 200 / 200 Balance 750 / 750 690 / 690 600 / 600 Weight 49.895 kg 49.89 kg Intake: IV 750 / 750 1000 / 1000 NS Inj 1,000 ML @ 75 mls/hr IV. 1000 / 1000 CONT .[id number] ERIC Rx#:[id number] Azithromycin Inj 500 MG In NS 250 / 250 Inj 250 ML @ 250 mls/hr IV.SIG ONCE ONE Rx#:[id number] NS Inj 500 ML @ Wide Open IV. 500 / 500 SIG BOLUS ONE Rx#:[id number] Oral 240 / 240 Anesthesia Amount 800 / 800 Output: Urine 550 / 550 Estimated Blood Loss 50 / 50 Urine Amount (Catheter) 150 / 150 Indwelling Urethral Catheter 150 / 150 Other: Date of Last Bowel Movement 05/07/18 05/07/18 Weight On Admission 49.895 kg Narrative: RLE: clean dry dressings and intact. intact distal pulses and active dorsiflexion and plantarflexion of foot - Urinary Catheter Management Straight Cath placed during this visit: yes, but has since been removed by the nurse Reason for continuing: Not indwelling catheter Insertion date: 05/09/18 Insertion time: 08:05 Removal date: 05/09/18 Removal time: 08:05 Indwelling Urethral Catheter Cath placed during this visit: yes Reason for continuing: Other continuation reason Insertion date: 05/09/18 Insertion time: 09:24 Results - Labs CBC & Chem 7: 05/09/18 07:50 05/09/18 07:50 - Imaging Impressions Carotid Doppler Study 05/09/18 00:00 CONCLUSION: 1. There is mild atherosclerotic plaquing at both carotid bifurcations. 2. No focal high-grade or hemodynamically significant stenosis. Hip X-Ray 05/10/18 00:00 CONCLUSION: Anatomic alignment. Assessment and Plan - Assessment and Plan Right Intertroch hip Fx IMN POD #0 PT WBAT daily dressing changes beginning POD 2 lovenox incentive spirometry CM for rehab placement Follow up with [facility] or [facility] in 2 weeks
[2018-05-10] MEDS: Levothyroxine 50 MCG Tablet PO SCH (11:06)
--- NOTE | 2018-05-10 11:46 | P.PNIM ---
Subjective Interval history: The patient says she feels well following the surgery. She said physical therapy will be coming back to work with her. She says her head hurts a little bit after hitting it yesterday. She says her food is on its way. Discussed with nursing. Physical Exam Vital signs: Vital Signs 05/09/18 13:03 05/09/18 14:25 05/09/18 17:37 Temperature 98.9 F Pulse Rate 80 101 H 97 H Respiratory Rate 20 18 20 Blood Pressure 165/65 H 154/57 H Pulse Oximetry 100 05/09/18 20:00 05/09/18 23:16 05/09/18 23:57 Temperature 97.3 F L Pulse Rate 105 H 105 H 91 H Respiratory Rate 18 18 Blood Pressure 169/83 H Pulse Oximetry 92 L 05/10/18 00:00 05/10/18 04:00 05/10/18 08:35 Temperature 97.8 F 98.2 F 97.5 F L Pulse Rate 100 H 96 H Respiratory Rate 19 18 16 Blood Pressure 127/64 169/75 H 135/63 Pulse Oximetry 93 L 91 L 100 05/10/18 08:45 05/10/18 09:00 05/10/18 09:15 Temperature Pulse Rate 109 H 102 H 101 H Respiratory Rate 16 21 Blood Pressure 135/61 138/64 Pulse Oximetry 100 94 L Intake & Output 05/09/18 05/10/18 05/10/18 18:59 06:59 18:59 Intake Total 750 / 750 1240 / 1240 800 / 800 Output Total 550 / 550 200 / 200 Balance 750 / 750 690 / 690 600 / 600 Weight 49.895 kg 49.89 kg Intake: IV 750 / 750 1000 / 1000 NS Inj 1,000 ML @ 75 mls/hr IV. 1000 / 1000 CONT .[id number] PENDING SALE TO [facility] Rx#:[id number] Azithromycin Inj 500 MG In NS 250 / 250 Inj 250 ML @ 250 mls/hr IV.SIG ONCE ONE Rx#:[id number] NS Inj 500 ML @ Wide Open IV. 500 / 500 SIG BOLUS ONE Rx#:[id number] Oral 240 / 240 Anesthesia Amount 800 / 800 Output: Urine 550 / 550 Estimated Blood Loss 50 / 50 Urine Amount (Catheter) 150 / 150 Indwelling Urethral Catheter 150 / 150 Other: Date of Last Bowel Movement 05/07/18 05/07/1805/07/18 Weight On Admission 49.895 kg Narrative: GENERAL: This is a well-nourished, well-developed patient, in no apparent distress. SKIN: Warm and dry. HEAD: Atraumatic. Normocephalic. No temporal or scalp tenderness. EYES: Pupils equal round and reactive. No injection or drainage. ENT: Nose without bleeding, purulent drainage or septal hematoma. Airway patent. NECK: Trachea midline. No lymphadenopathy. Supple, nontender, no meningeal signs. CARDIOVASCULAR: Regular rate and rhythm without murmurs, gallops, or rubs. No JVD. RESPIRATORY: Clear to auscultation. Breath sounds equal bilaterally. No wheezes , rales, or rhonchi. GASTROINTESTINAL: Abdomen soft, non-tender, nondistended. No guarding. MUSCULOSKELETAL: Right lower extremity with bandage in place. NEUROLOGICAL: Awake and alert. Cranial nerves II through XII intact. No focal neurological deficits. Normal speech. - Urinary Catheter Management Straight Cath placed during this visit: yes, but has since been removed by the nurse Reason for continuing: Not indwelling catheter Insertion date: 05/09/18 Insertion time: 08:05 Removal date: 05/09/18 Removal time: 08:05 Indwelling Urethral Catheter Cath placed during this visit: yes Reason for continuing: Other continuation reason Insertion date: 05/09/18 Insertion time: 09:24 Results - Labs CBC & Chem 7: 05/09/18 07:50 05/09/18 07:50 - Imaging Impressions Carotid Doppler Study 05/09/18 00:00 CONCLUSION: 1. There is mild atherosclerotic plaquing at both carotid bifurcations. 2. No focal high-grade or hemodynamically significant stenosis. Hip X-Ray 05/10/18 00:00 CONCLUSION: Anatomic alignment. Assessment and Plan - Assessment (1) CAD (coronary artery disease) Code(s): I25.10 - Atherosclerotic heart disease of [place] coronary artery without angina pectoris Status: Acute (2) Closed hip fracture Code(s): S72.009A - Fracture of unspecified part of neck of unspecified femur, initial encounter for closed fracture Status: Acute (3) Rheumatoid arthritis Code(s): M06.9 - Rheumatoid arthritis, unspecified Status: Acute (4) COPD (chronic obstructive pulmonary disease) Code(s): J44.9 - Chronic obstructive pulmonary disease, unspecified Status: Acute - Plan Ms. Durán is a pleasant 77-year-old female with a history of rheumatoid arthritis, CAD, COPD who presents to the emergency department after she fell at home this morning. She denies any dizziness, chest pain, shortness of breath, fever or chills. She could not explain why she fell but she did not feel dizziness or lightheadedness. Acute fall at home Right femoral neck fracture -Orthopedic surgery consulted for femoral neck fracture. S/p repair 05/10. -We will continue with acetaminophen, [place], morphine all as needed for pain. -Bowel regimen in place. -CT head was unremarkable for any acute findings. EKG unremarkable for any ischemic changes. Carotid US negative for acute process. COPD -patient received azithromycin in the ED. Will continue DuoNeb as needed -Currently she is on 2 L and oxygen saturation around 96%. We can likely wean her off oxygen. Breathing comfortably. CAD -patient has 2 cardiac stents that were placed more than 2 years ago. No recent cardiac complaints. PPx: Per surgery (2) Closed hip fracture Qualifiers: Encounter type: initial encounter Laterality: right Qualified Code(s): S72.001A - Fracture of unspecified part of neck of right femur, initial encounter for closed fracture (4) COPD (chronic obstructive pulmonary disease) Qualifiers: COPD type: COPD with acute exacerbation Qualified Code(s): J44.1 - Chronic obstructive pulmonary disease with (acute) exacerbation
[2018-05-10] MEDS ORDERED: Lidocaine PF 1% Inj 5 ML Syringe INFILTRATN ONE (12:00)
[2018-05-10] MEDS ORDERED: Phenylephrine/NS 1000 MCG/10ML Syringe IV.PUSH ONE (12:00)
[2018-05-10] MEDS ORDERED: Neostigmine Inj 5 MG/5 ML Syringe IV.PUSH ONE (12:00)
[2018-05-10] MEDS ORDERED: Normosol-R pH 7.4 Inj 1,000 ML IV.CONT ONE (12:00)
[2018-05-10] MEDS ORDERED: Glycopyrrolate Inj 1 MG/5 ML Syringe IV.PUSH ONE (12:00)
[2018-05-11 07:32] LABS: Baso % (Auto) 0.2 % (0.0-2.0); Eos # (Auto) 0.1 th/mm3 (0.0-0.4); Eos % (Auto) 1.1 % (0.0-4.0); Hematocrit 29.4 % (35.0-46.0); Hemoglobin 9.3 gm/dL (11.6-15.3); Lymph # (Auto) 1.4 th/mm3 (1.0-4.8); Lymph % (Auto) 13.9 % (9.0-44.0); Mean Corpuscular HGB Conc 31.6 % (32.0-36.0); Mean Corpuscular Hemoglobin 21.6 pg (27.0-34.0); Mean Corpuscular Volume 68.1 fL (80.0-100.0); Mean Platelet Volume 7.5 fL (7.0-11.0); Mono # (Auto) 1.7 th/mm3 (0.0-0.9); Mono % (Auto) 16.8 % (0.0-8.0); Neut # (Auto) 6.9 th/mm3 (1.8-7.7); Platelet Count 178 th/mm3 (150-450); Red Blood Count 4.31 mil/mm3 (4.00-5.30); Red Cell Distribution Width 16.8 % (11.6-17.2); White Blood Count 10.2 th/mm3 (4.0-11.0)
--- NOTE | 2018-05-11 08:16 | P.PNOP ---
Subjective Interval history: doing well. Physical Exam Vital signs: Vital Signs 05/10/18 08:35 05/10/18 08:45 05/10/18 09:00 Temperature 97.5 F L Pulse Rate 109 H 102 H Respiratory Rate 16 16 21 Blood Pressure 135/63 135/61 138/64 Pulse Oximetry 100 100 94 L 05/10/18 09:15 05/10/18 09:30 05/10/18 09:45 Temperature 97.9 F Pulse Rate 101 H 97 H 99 H Respiratory Rate 20 20 23 Blood Pressure 142/58 H 137/63 138/63 Pulse Oximetry 100 100 95 05/10/18 12:00 05/10/18 18:19 05/10/18 20:00 Temperature 98.0 F 97.8 F 98 F Pulse Rate 93 H 95 H 86 Respiratory Rate 16 17 18 Blood Pressure 123/72 155/66 H 118/59 L Pulse Oximetry 99 92 L 99 05/11/18 00:00 05/11/18 04:00 Temperature 97.2 F L 97.4 F L Pulse Rate 77 86 Respiratory Rate 18 18 Blood Pressure 127/66 144/84 H Pulse Oximetry 98 99 Intake & Output 05/10/18 05/11/18 05/11/18 18:59 06:59 18:59 Intake Total 1100 / 1100 440 / 440 Output Total 650 / 650 950 / 950 Balance 450 / 450 -510 / -510 Intake: IV 200 / 200 LR 1000 mL Inj 1,000 ML @ 50 0 / 0 mls/hr IV.CONT .Q20H ERIC Rx#: [id number] Ancef Inj 1,000 MG In NS Inj 200 / 200 100 ML @ 200 mls/hr IV.SIG Q6H ERIC Rx#:[id number] Oral 300 / 300 240 / 240 Anesthesia Amount 800 / 800 Output: Urine 950 / 950 Estimated Blood Loss 50 / 50 Urine Amount (Catheter) 600 / 600 Indwelling Urethral Catheter 600 / 600 Other: Date of Last Bowel Movement 05/07/18 05/07/18 Narrative: in bed, nad dressing slight bloody drainage thigh soft neg homans nvi - Urinary Catheter Management Straight Cath placed during this visit: yes, but has since been removed by the nurse Reason for continuing: Not indwelling catheter Insertion date: 05/09/18 Insertion time: 08:05 Removal date: 05/09/18 Removal time: 08:05 Indwelling Urethral Catheter Cath placed during this visit: yes Reason for continuing: Other continuation reason Insertion date: 05/09/18 Insertion time: 09:24 Results - Labs CBC & Chem 7: 05/11/18 06:49 05/09/18 07:50 Laboratory Results - last 24 hr 05/11/18 06:49 WBC 10.2 RBC 4.31 Hgb 9.3 L Hct 29.4 L MCV 68.1 L MCH 21.6 L MCHC 31.6 L RDW 16.8 Plt Count 178 D MPV 7.5 Neut % (Auto) 68.0 Lymph % (Auto) 13.9 [place] % (Auto) 16.8 H Eos % (Auto) 1.1 Baso % (Auto) 0.2 Neut # (Auto) 6.9 Lymph # (Auto) 1.4 [place] # (Auto) 1.7 H Eos # (Auto) 0.1 Baso # (Auto) 0.0 WBC Differential . Differential Comment Auto diff final - Imaging Impressions Hip X-Ray 05/10/18 00:00 CONCLUSION: Anatomic alignment. Assessment and Plan - Ortho Post Op Day # 1 - Assessment and Plan Right Intertroch hip Fx IMN POD #1 PT WBAT daily dressing changes beginning POD 2 lovenox incentive spirometry CM for rehab placement Follow up with [facility] or [facility] in 2 weeks
[2018-05-11] MEDS: Enoxaparin Inj 30 MG/0.3 ML Syringe SQ SCH (08:56)
[2018-05-11] MEDS: Levothyroxine 50 MCG Tablet PO SCH (09:06)
[2018-05-11] MEDS ORDERED: Polyethylene Glycol 3350 17 GM Packet PO ONE (16:06)
--- NOTE | 2018-05-11 16:11 | P.PNIM ---
Subjective Interval history: The patient was complaining of continued abdominal pain. She said she has been prone to constipation. She has been having a lot of gas. She does have a history of acid reflux. Discussed with her family at the bedside. Discussed with nursing. Physical Exam Vital signs: Vital Signs 05/10/18 18:19 05/10/18 20:00 05/11/18 00:00 Temperature 97.8 F 98 F 97.2 F L Pulse Rate 95 H 86 77 Respiratory Rate 17 18 18 Blood Pressure 155/66 H 118/59 L 127/66 Pulse Oximetry 92 L 99 98 05/11/18 04:00 05/11/18 08:00 05/11/18 09:45 Temperature 97.4 F L 97.8 F Pulse Rate 86 89 Respiratory Rate 18 17 Blood Pressure 144/84 H 134/71 Pulse Oximetry 99 100 97 05/11/18 12:00 Temperature 97.9 F Pulse Rate 105 H Respiratory Rate 18 Blood Pressure 110/58 L Pulse Oximetry 97 Intake & Output 05/10/18 05/11/18 05/11/18 18:59 06:59 18:59 Intake Total 1100 / 1100 440 / 440 1000 / 1000 Output Total 650 / 650 950 / 950 Balance 450 / 450 -510 / -510 1000 / 1000 Intake: IV 200 / 200 1000 / 1000 LR 1000 mL Inj 1,000 ML @ 50 0 / 0 1000 / 1000 mls/hr IV.CONT .Q20H ERIC Rx#: [id number] Ancef Inj 1,000 MG In NS Inj 200 / 200 100 ML @ 200 mls/hr IV.SIG Q6H ERIC Rx#:[id number] Oral 300 / 300 240 / 240 Anesthesia Amount 800 / 800 Output: Urine 950 / 950 Estimated Blood Loss 50 / 50 Urine Amount (Catheter) 600 / 600 Indwelling Urethral Catheter 600 / 600 Other: Date of Last Bowel Movement 05/07/18 05/07/18 Narrative: GENERAL: This is a well-nourished, well-developed patient, in no apparent distress. SKIN: Warm and dry. HEAD: Atraumatic. Normocephalic. No temporal or scalp tenderness. EYES: Pupils equal round and reactive. No injection or drainage. ENT: Nose without bleeding, purulent drainage or septal hematoma. Airway patent. NECK: Trachea midline. No lymphadenopathy. Supple, nontender, no meningeal signs. CARDIOVASCULAR: Regular rate and rhythm without murmurs, gallops, or rubs. No JVD. RESPIRATORY: Clear to auscultation. Breath sounds equal bilaterally. No wheezes , rales, or rhonchi. GASTROINTESTINAL: Abdomen soft, mild epigastric tenderness, nondistended. No guarding. MUSCULOSKELETAL: Right lower extremity with bandage in place. NEUROLOGICAL: Awake and alert. Cranial nerves II through XII intact. No focal neurological deficits. Normal speech. - Urinary Catheter Management Straight Cath placed during this visit: yes, but has since been removed by the nurse Reason for continuing: Not indwelling catheter Insertion date: 05/09/18 Insertion time: 08:05 Removal date: 05/09/18 Removal time: 08:05 Indwelling Urethral Catheter Cath placed during this visit: yes Reason for continuing: Other continuation reason Insertion date: 05/09/18 Insertion time: 09:24 Results - Labs CBC & Chem 7: 05/11/18 06:49 05/09/18 07:50 Laboratory Results - last 24 hr 05/11/18 06:49 WBC 10.2 RBC 4.31 Hgb 9.3 L Hct 29.4 L MCV 68.1 L MCH 21.6 L MCHC 31.6 L RDW 16.8 Plt Count 178 D MPV 7.5 Neut % (Auto) 68.0 Lymph % (Auto) 13.9 [place] % (Auto) 16.8 H Eos % (Auto) 1.1 Baso % (Auto) 0.2 Neut # (Auto) 6.9 Lymph # (Auto) 1.4 [place] # (Auto) 1.7 H Eos # (Auto) 0.1 Baso # (Auto) 0.0 WBC Differential . Differential Comment Auto diff final Assessment and Plan - Assessment (1) CAD (coronary artery disease) Code(s): I25.10 - Atherosclerotic heart disease of [place] coronary artery without angina pectoris Status: Acute (2) Closed hip fracture Code(s): S72.009A - Fracture of unspecified part of neck of unspecified femur, initial encounter for closed fracture Status: Acute (3) Rheumatoid arthritis Code(s): M06.9 - Rheumatoid arthritis, unspecified Status: Acute (4) COPD (chronic obstructive pulmonary disease) Code(s): J44.9 - Chronic obstructive pulmonary disease, unspecified Status: Acute - Plan Ms. Durán is a pleasant 77-year-old female with a history of rheumatoid arthritis, CAD, COPD who presents to the emergency department after she fell at home this morning. She denies any dizziness, chest pain, shortness of breath, fever or chills. She could not explain why she fell but she did not feel dizziness or lightheadedness. Acute fall at home Right femoral neck fracture -Orthopedic surgery consulted for femoral neck fracture. S/p repair 05/10. -We will continue with acetaminophen, [place], morphine all as needed for pain. -Bowel regimen in place. -CT head was unremarkable for any acute findings. EKG unremarkable for any ischemic changes. Carotid US negative for acute process. -will need SNF placement. CM assistance appreciated. Constipation/ GERD The pt endorses periods of constipation and symptoms of GERD. Recent CT abdomen unremarkable. - bowel regimen. - PPI. - check lipase. COPD -patient received azithromycin in the ED. Will continue DuoNeb as needed -Currently she is on 2 L and oxygen saturation around 96%. We can likely wean her off oxygen. Breathing comfortably. CAD -patient has 2 cardiac stents that were placed more than 2 years ago. No recent cardiac complaints. PPx: Per surgery (2) Closed hip fracture Qualifiers: Encounter type: initial encounter Laterality: right Qualified Code(s): S72.001A - Fracture of unspecified part of neck of right femur, initial encounter for closed fracture (4) COPD (chronic obstructive pulmonary disease) Qualifiers: COPD type: COPD with acute exacerbation Qualified Code(s): J44.1 - Chronic obstructive pulmonary disease with (acute) exacerbation
[2018-05-11] MEDS ORDERED: Sodium Chloride 0.45 % Inj 1,000 ML IV.CONT SCH (16:15)
[2018-05-12] MEDS: Levothyroxine 50 MCG Tablet PO SCH (06:54)
[2018-05-12] MEDS: Enoxaparin Inj 30 MG/0.3 ML Syringe SQ SCH (10:08)
--- NOTE | 2018-05-12 12:47 | P.PNOP ---
Subjective Interval history: hip pain minimal Physical Exam Vital signs: Vital Signs 05/11/18 16:00 05/11/18 20:00 05/11/18 20:35 Temperature 98.3 F 97.9 F Pulse Rate 102 H 100 H 93 H Respiratory Rate 18 19 Blood Pressure 127/59 L 154/67 H Pulse Oximetry 98 95 97 05/12/18 00:00 05/12/18 04:00 05/12/18 08:00 Temperature 97.9 F 98.3 F 98.9 F Pulse Rate 114 H 84 98 H Respiratory Rate 18 18 18 Blood Pressure 142/63 H 144/70 H 119/61 Pulse Oximetry 93 L 97 95 05/12/18 12:00 Temperature 98.2 F Pulse Rate 106 H Respiratory Rate 17 Blood Pressure 118/59 L Pulse Oximetry 95 Intake & Output 05/11/18 05/12/18 05/12/18 18:59 06:59 18:59 Intake Total 1960 / 1960 Output Total 450 / 450 850 / 850 Balance 1510 / 1510 -850 / -850 Weight 49.8 kg Intake: IV 1000 / 1000 LR 1000 mL Inj 1,000 ML @ 50 1000 / 1000 mls/hr IV.CONT .Q20H [facility] Rx#: [id number] Oral 960 / 960 Output: Urine 850 / 850 Urine Amount (Catheter) 450 / 450 Indwelling Urethral Catheter 450 / 450 Other: Date of Last Bowel Movement 05/10/18 Narrative: in bed, nad dressing mild bloody drainage neg homans nvi - Urinary Catheter Management Straight Cath placed during this visit: yes, but has since been removed by the nurse Reason for continuing: Not indwelling catheter Insertion date: 05/09/18 Insertion time: 08:05 Removal date: 05/09/18 Removal time: 08:05 Indwelling Urethral Catheter Cath placed during this visit: yes Reason for continuing: Other continuation reason Insertion date: 05/09/18 Insertion time: 09:24 Results - Labs CBC & Chem 7: 05/11/18 06:49 05/09/18 07:50 Laboratory Results - last 24 hr 05/11/18 19:19 Lipase 50 L Assessment and Plan - Ortho Post Op Day # 2 - Assessment and Plan Right Intertroch hip Fx IMN POD #2 PT WBAT daily dressing changes lovenox incentive spirometry CM for rehab placement Follow up with [facility] or [facility] in 2 weeks ortho stable and cleared
[2018-05-12] MEDS ORDERED: Aluminum/Magnesium/Simethacone Susp 30 ML UDC PO PRN (12:48)
--- NOTE | 2018-05-12 14:29 | P.PNIM ---
Subjective Interval history: The patient was complaining of acid reflux. She says she is normally on a medication twice a day at home. She says she is spitting up a lot. She has had decreased appetite. Discussed with nursing. Physical Exam Vital signs: Vital Signs 05/11/18 16:00 05/11/18 20:00 05/11/18 20:35 Temperature 98.3 F 97.9 F Pulse Rate 102 H 100 H 93 H Respiratory Rate 18 19 Blood Pressure 127/59 L 154/67 H Pulse Oximetry 98 95 97 05/12/18 00:00 05/12/18 04:00 05/12/18 08:00 Temperature 97.9 F 98.3 F 98.9 F Pulse Rate 114 H 84 98 H Respiratory Rate 18 18 18 Blood Pressure 142/63 H 144/70 H 119/61 Pulse Oximetry 93 L 97 95 05/12/18 12:00 Temperature 98.2 F Pulse Rate 106 H Respiratory Rate 17 Blood Pressure 118/59 L Pulse Oximetry 95 Intake & Output 05/11/18 05/12/18 05/12/18 18:59 06:59 18:59 Intake Total 1960 / 1960 Output Total 450 / 450 850 / 850 Balance 1510 / 1510 -850 / -850 Weight 49.8 kg Intake: IV 1000 / 1000 LR 1000 mL Inj 1,000 ML @ 50 1000 / 1000 mls/hr IV.CONT .Q20H [facility] Rx#: [id number] Oral 960 / 960 Output: Urine 850 / 850 Urine Amount (Catheter) 450 / 450 Indwelling Urethral Catheter 450 / 450 Other: Date of Last Bowel Movement 05/10/18 Narrative: GENERAL: This is a well-nourished, well-developed patient, in no apparent distress. SKIN: Warm and dry. HEAD: Atraumatic. Normocephalic. No temporal or scalp tenderness. EYES: Pupils equal round and reactive. No injection or drainage. ENT: Nose without bleeding, purulent drainage or septal hematoma. Airway patent. NECK: Trachea midline. No lymphadenopathy. Supple, nontender, no meningeal signs. CARDIOVASCULAR: Regular rate and rhythm without murmurs, gallops, or rubs. No JVD. RESPIRATORY: Clear to auscultation. Breath sounds equal bilaterally. No wheezes , rales, or rhonchi. GASTROINTESTINAL: Abdomen soft, mild epigastric tenderness, nondistended. No guarding. MUSCULOSKELETAL: Right lower extremity with bandage in place. NEUROLOGICAL: Awake and alert. Cranial nerves II through XII intact. No focal neurological deficits. Normal speech. - Urinary Catheter Management Straight Cath placed during this visit: yes, but has since been removed by the nurse Reason for continuing: Not indwelling catheter Insertion date: 05/09/18 Insertion time: 08:05 Removal date: 05/09/18 Removal time: 08:05 Indwelling Urethral Catheter Cath placed during this visit: yes Reason for continuing: Other continuation reason Insertion date: 05/09/18 Insertion time: 09:24 Results - Labs CBC & Chem 7: 05/11/18 06:49 05/09/18 07:50 Laboratory Results - last 24 hr 05/11/18 19:19 Lipase 50 L Assessment and Plan - Assessment (1) CAD (coronary artery disease) Code(s): I25.10 - Atherosclerotic heart disease of [place] coronary artery without angina pectoris Status: Acute (2) Closed hip fracture Code(s): S72.009A - Fracture of unspecified part of neck of unspecified femur, initial encounter for closed fracture Status: Acute (3) Rheumatoid arthritis Code(s): M06.9 - Rheumatoid arthritis, unspecified Status: Acute (4) COPD (chronic obstructive pulmonary disease) Code(s): J44.9 - Chronic obstructive pulmonary disease, unspecified Status: Acute - Plan Ms. Durán is a pleasant 77-year-old female with a history of rheumatoid arthritis, CAD, COPD who presents to the emergency department after she fell at home this morning. She denies any dizziness, chest pain, shortness of breath, fever or chills. She could not explain why she fell but she did not feel dizziness or lightheadedness. Acute fall at home Right femoral neck fracture -Orthopedic surgery consulted for femoral neck fracture. S/p repair 05/10. -We will continue with acetaminophen, [place], morphine all as needed for pain. -Bowel regimen in place. -CT head was unremarkable for any acute findings. EKG unremarkable for any ischemic changes. Carotid US negative for acute process. -will need SNF placement. CM assistance appreciated. Constipation/ GERD The pt endorses periods of constipation and symptoms of GERD. Recent CT abdomen unremarkable. - bowel regimen. - PPI BID. - standing Maalox. COPD -patient received azithromycin in the ED. Will continue DuoNeb as needed -Currently she is on 2 L and oxygen saturation around 96%. We can likely wean her off oxygen. Breathing comfortably. CAD -patient has 2 cardiac stents that were placed more than 2 years ago. No recent cardiac complaints. PPx: Per surgery (2) Closed hip fracture Qualifiers: Encounter type: initial encounter Laterality: right Qualified Code(s): S72.001A - Fracture of unspecified part of neck of right femur, initial encounter for closed fracture (4) COPD (chronic obstructive pulmonary disease) Qualifiers: COPD type: COPD with acute exacerbation Qualified Code(s): J44.1 - Chronic obstructive pulmonary disease with (acute) exacerbation
[2018-05-12] MEDS: Baclofen 10 MG Tablet PO SCH ×2 (15:26→21:39)
[2018-05-12] MEDS: Aluminum/Magnesium/Simethacone Susp 30 ML UDC PO SCH ×2 (15:26→21:38)
[2018-05-13] MEDS: Aluminum/Magnesium/Simethacone Susp 30 ML UDC PO SCH (03:36)
[2018-05-13] MEDS: Baclofen 10 MG Tablet PO SCH (06:05)
[2018-05-13] MEDS: Levothyroxine 50 MCG Tablet PO SCH (06:05)
--- NOTE | 2018-05-13 06:36 | P.PNOP ---
Subjective Interval history: s/p IMN right hip doing well. pain controlled. working with therapy Physical Exam Vital signs: Vital Signs 05/12/18 08:00 05/12/18 12:00 05/12/18 16:00 Temperature 98.9 F 98.2 F 98.4 F Pulse Rate 98 H 106 H 119 H Respiratory Rate 18 17 18 Blood Pressure 119/61 118/59 L 117/61 Pulse Oximetry 95 95 92 L 05/12/18 20:00 05/12/18 21:43 05/13/18 00:00 Temperature 98.4 F 98.5 F Pulse Rate 102 H 105 H 108 H Respiratory Rate 19 14 18 Blood Pressure 112/61 131/71 Pulse Oximetry 97 98 97 05/13/18 00:15 05/13/18 04:00 05/13/18 04:59 Temperature 98.2 F Pulse Rate 103 H 100 H 94 H Respiratory Rate 18 Blood Pressure 140/64 Pulse Oximetry 98 Intake & Output 05/12/18 05/12/18 05/13/18 06:59 18:59 06:59 Intake Total 900 / 900 Output Total 850 / 850 350 / 350 Balance -850 / -850 550 / 550 Weight 49.8 kg 49.8 kg Intake: Oral 900 / 900 Output: Urine 850 / 850 350 / 350 Other: # Voids 4 Date of Last Bowel Movement 05/10/18 05/10/18 Narrative: RLE: dressings clean and dry. intact. NVI - Urinary Catheter Management Straight Cath placed during this visit: yes, but has since been removed by the nurse Reason for continuing: Not indwelling catheter Insertion date: 05/09/18 Insertion time: 08:05 Removal date: 05/09/18 Removal time: 08:05 Indwelling Urethral Catheter Cath placed during this visit: yes Reason for continuing: Other continuation reason Insertion date: 05/09/18 Insertion time: 09:24 Results - Labs CBC & Chem 7: 05/11/18 06:49 05/09/18 07:50 Assessment and Plan - Assessment and Plan Right Intertroch hip Fx IMN POD #3 PT WBAT daily dressing changes lovenox incentive spirometry CM for rehab placement Follow up with [facility] or [facility] in 2 weeks ortho stable and cleared
[2018-05-13] MEDS: Enoxaparin Inj 30 MG/0.3 ML Syringe SQ SCH (09:08)
[2018-05-13 10:25] VITALS: RESP 19; O2SAT 95
--- NOTE | 2018-05-13 10:40 | P.DS ---
Date of admission: 05/09/18 10:42 Primary care physician: Chava Doshi Anticipated date of discharge: 05/13/18 Brief History from admission: Ms. Durán is a pleasant 77-year-old female with a history of COPD, coronary artery disease who presents to the emergency department on 2017 after she fell and hit her head. She did not lose consciousness. ED workup indicated right femoral neck fracture. This morning around 6:40 AM patient woke up with the barking of 1 of her 3 dogs. Patient came to the kitchen to let the dogs out and subsequently she was going back to her room. On her way to the room, she hit the wall and fell. She denies any chest pain, dizziness, shortness of breath. She could not specify why she fell. She was able to come back to the kitchen and call for help. At the time of this interview, patient is somewhat lethargic but complains of no chest pain, shortness of breath, fever or chills. She complains of right hip pain. No changes in bowel or bladder habits. Except for back pain for over a month, patient lives alone and functional. She does not require any supplemental oxygen. She has 2 cardiac stents that were placed more than 2 years ago. She does not get any exertional chest pain or dyspnea. DS: Diagnosis - Discharge Diagnosis (1) CAD (coronary artery disease) Status: Acute (2) Closed hip fracture Status: Acute (3) Rheumatoid arthritis Status: Acute (4) COPD (chronic obstructive pulmonary disease) Status: Acute DS: Medications - Discharge Medications Prescriptions: hydrocodone-acetaminophen [[place]] 1 tab PO Q4H PRN #40 tab PRN Reason: pain 6-10 rivaroxaban [Xarelto] 10 mg PO DAILY #14 tab DS: Summary Hospital Course: Right femoral neck fracture The patient presented to the emergency department after she fell at home. CT head was unremarkable for any acute findings. EKG unremarkable for any ischemic changes. Carotid US negative for acute process. Imaging revealed: A basicervical fracture of the right femoral neck is noted; There is no significant angulation or distraction. Orthopedic surgery was consulted. S/p repair 05/10/18. We continued acetaminophen, [place], morphine as needed for pain. A bowel regimen was placed. She worked with physical therapy. Orthopedic surgery cleared the pt for discharge and she will follow-up as an outpt. Case management was consulted and arrangements were made for discharge to SNF. Constipation/ GERD The pt endorsed periods of constipation and symptoms of GERD. Recent CT abdomen was unremarkable. She was started on an aggressive bowel regimen. She was started on a PPI BID and standing Maalox. Her symptoms improved. She will be referred to GI upon discharge. COPD Patient received azithromycin in the ED. We continued DuoNebs as needed. She was resumed on an inhaler. She will follow up with her receivable clerk as needed. - Time Spent with Patient Total time spent providing and/or coordinating discharge services: Greater than 30 minutes - Quality: VTE Deep Vein Thrombosis/Pulmonary Embolism Present on Admission: No Exam Vital signs: Vital Signs 05/12/18 12:00 05/12/18 16:00 05/12/18 20:00 Temperature 98.2 F 98.4 F 98.4 F Pulse Rate 106 H 119 H 102 H Respiratory Rate 17 18 19 Blood Pressure 118/59 L 117/61 112/61 Pulse Oximetry 95 92 L 97 05/12/18 21:43 05/13/18 00:00 05/13/18 00:15 Temperature 98.5 F Pulse Rate 105 H 108 H 103 H Respiratory Rate 14 18 Blood Pressure 131/71 Pulse Oximetry 98 97 05/13/18 04:00 05/13/18 04:59 05/13/18 08:00 Temperature 98.2 F 98.1 F Pulse Rate 100 H 94 H 95 H Respiratory Rate 18 19 Blood Pressure 140/64 146/67 H Pulse Oximetry 98 95 05/13/18 09:00 Temperature Pulse Rate 95 H Respiratory Rate Blood Pressure Pulse Oximetry Intake & Output 05/12/18 05/13/18 05/13/18 18:59 06:59 18:59 Intake Total 900 / 900 Output Total 350 / 350 Balance 550 / 550 Weight 49.8 kg Intake: Oral 900 / 900 Output: Urine 350 / 350 Other: # Voids 4 Date of Last Bowel Movement 05/10/18 05/10/18 Narrative: GENERAL: This is a well-nourished, well-developed patient, in no apparent distress. SKIN: Warm and dry. HEAD: Atraumatic. Normocephalic. No temporal or scalp tenderness. EYES: Pupils equal round and reactive. No injection or drainage. ENT: Nose without bleeding, purulent drainage or septal hematoma. Airway patent. NECK: Trachea midline. No lymphadenopathy. Supple, nontender, no meningeal signs. CARDIOVASCULAR: Regular rate and rhythm without murmurs, gallops, or rubs. No JVD. RESPIRATORY: Clear to auscultation. Breath sounds equal bilaterally. No wheezes , rales, or rhonchi. GASTROINTESTINAL: Abdomen soft, mild epigastric tenderness, nondistended. No guarding. MUSCULOSKELETAL: Right lower extremity with bandage in place. NEUROLOGICAL: Awake and alert. Cranial nerves II through XII intact. No focal neurological deficits. Normal speech. Results Procedures completed during hospitalization: Right femoral neck fracture repair - Impressions ITS Impressions Carotid Doppler Study 05/09/18 00:00 CONCLUSION: 1. There is mild atherosclerotic plaquing at both carotid bifurcations. 2. No focal high-grade or hemodynamically significant stenosis. Cervical Spine CT 05/09/18 07:29 CONCLUSION: 1. No evidence of acute bony or soft tissue trauma. 2. Moderate-sized central disc protrusion at C3-4. 3. Small moderate size left paracentral disc protrusion at C5-6. 4. Mild degenerative disc disease C6-7 with central and right paracentral disc osteophyte complex causing mild epidural effacement. Chest X-Ray 05/09/18 07:29 CONCLUSION: No acute cardiopulmonary disease. T12 compression deformity. Prior L1 cement augmentation. Head CT 05/09/18 07:29 CONCLUSION: 1. No acute intracranial abnormality. Pelvis X-Ray 05/09/18 07:29 CONCLUSION: Right femoral neck fracture Intact bony pelvis Hip X-Ray 05/10/18 00:00 CONCLUSION: Anatomic alignment. Discharge Plan - Discharge Disposition Patient Disposition: Discharge to SNF - Discharge Condition Condition: Stable - Discharge Order Discharge Orders: Discharge Order (Routine); Ordered 05/13/18 Ordered By: Ramses Leonard Orthopedic Clear for Discharge (Routine); Ordered 05/13/18 Ordered By: Ismael Castro - Discharge Details Anticipated Discharge Date: 05/13/18 - Physicians Team Primary Care Provider: Chava Doshi Attending Provider: Ramses Leonard Other Providers: Franklin Carrasco MD ; Boyd Diaz MD
[2018-05-13 15:59] VITALS: BP 119/60; PULSE 108; TEMP 97.4
== END 2018-05-13 13:34 ==
LOC: NEPE 07:20 → NEDA 10:42 → N06 17:36
PROVIDERS: ADMIT Hospitalist; ATTEND Hospitalist